=== PATIENT | female | born 1935 | race Caucasian/White ===

== ENCOUNTER 2020-04-22 21:21 | Inpatient (IN) | payer OTHER ==
[~2020-04-22] VITALS: Ht 162.6 cm; Wt 74.6 kg
--- NOTE | 2020-04-22 21:27 | NUR ---
PT BIB RA WITH A C/O GENERALIZED WEAKNESS. PT USUALLY AMBULATES WITH A WALKER AND TODAY IS NOT ABLE TO WITHOUT BEING UNSTEADY. PT HAS A HX OF COLON CA AND IS CURRENTLY GETTING TREATMENT FOR IT [facility] DR NORTH BAIRD, ONCOLOGIST. OFFICE: [phone]; CELL: [phone]
[2020-04-22] MEDS ORDERED: IV NS 0.9% 500 ML BAG IV ONE (21:30)
[2020-04-22 21:45] LABS: BASOPHILS % (AUTO) 0.4 % (0.0-2.0); EOSINOPHILS % (AUTO) 0.2 % (0.0-6.0); HEMATOCRIT 43 % (33-45); HEMOGLOBIN 14.6 g/dL (11.5-14.8); LYMPHOCYTES # (AUTO) 0.5 /CMM (0.8-4.8); LYMPHOCYTES % (AUTO) 5.7 % (20.0-44.0); MEAN CORPUSCULAR HGB CONC 34 g/dl (31.0-36.0); MEAN CORPUSCULAR VOLUME 87 fL (82-100); MONOCYTES # (AUTO) 0.6 /CMM (0.1-1.30); MONOCYTES % (AUTO) 7.8 % (2.0-12.0); NEUTROPHILS # (AUTO) 6.9 /CMM (1.8-8.9); NEUTROPHILS % (AUTO) 85.9 % (43.0-81.0); PLATELET COUNT (AUTO) 332 /CMM (150-450); RED BLOOD CELL COUNT(AUTO) 4.88 MIL/uL (4.0-5.2)
[2020-04-22 21:52] LABS: APPEARANCE,URINE Clear (CLEAR); BILIRUBIN,URINE Negative (NEGATIVE); BLOOD, URINE Negative Ery/uL (NEGATIVE); COLOR,URINE Yellow (YELLOW); KETONES,URINE Trace (NEGATIVE); LEUKOCYTE ESTERASE ,URINE Negative (NEGATIVE); NITRITE, URINE Negative (NEGATIVE); PH,URINE 5.5 (5.0-8.0); PROTEIN,URINE 30 mg/dl (NEGATIVE); UGLUCOSE Negative (NEGATIVE); UROBILINOGEN,URINE 0.2 EU/dL (0.2)
[2020-04-22 21:55] LABS: CALCIUM, SERUM 10.6 mg/dL (8.5-10.1); CARBON DIOXIDE 30 mmol/L (21-32); CHLORIDE 86 mmol/L (98-107); CREATININE 0.7 mg/dL (0.6-1.3); GLUCOSE 124 mg/dL (74-106); POTASSIUM 3.9 mmol/L (3.5-5.1); SODIUM SERUM 121 mmol/L (136-145); UREA NITROGEN, BLOOD 18 mg/dL (7-18)
[2020-04-22 22:00] LABS: ALANINE AMINOTRANSFERASE 22 U/L (12-78); ALBUMIN 2.8 g/dL (3.4-5.0); ALKALINE PHOSPHATASE 209 U/L (46-116); ASPARTATE AMINOTRANSFERASE 43 U/L (15-37); BILIRUBIN,DIRECT 0.2 mg/dL (0.0-0.2); BILIRUBIN,TOTAL 0.6 mg/dL (0.2-1.0)
[2020-04-22 22:01] LABS: ACETAMINOPHEN < 2 ug/ml (10-30); SALICYLATE < 2.8 mg/dL (2.8-20.0)
[2020-04-22 22:02] LABS: BACTERIA,URINE Many /HPF (None Seen); RBC,URINE 0-2 /HPF (0-2); SQUAMOUS EPITHELIAL CELL,UR Few /HPF (None Seen); WBC,URINE 0-2 /HPF (0-3)
--- NOTE | 2020-04-22 22:06 | NUR ---
PT IS IN CT.
[2020-04-22 22:07] LABS: SERUM AMMONIA 7 umol/L (11-32)
--- NOTE | 2020-04-22 22:11 | NUR ---
PT RETURNED FROM CT.
--- NOTE | 2020-04-22 22:17 | NUR ---
SR UP X 2 AND PADDED. SEIZURE PRECAUTIONS DUE TO SODIUM LEVEL IS LOW @ 121.
--- NOTE | 2020-04-22 22:17 | NUR ---
PT'S O2 SAT IS 94% ON RA. DR SHABAZZ WAS ASKED RE: O2 FOR PT. DR SHABAZZ WAS OK WITH PT'S SATURATION ON RA. NO NEW ORDERS GIVEN.
--- NOTE | 2020-04-22 22:17 | NUR ---
DR SHABAZZ IS AT THE BEDSIDE SPEAKING TO THE PT RE: POC.
[2020-04-22 22:19] LABS: THYROID STIMULATING HORMONE 3.294 uIU/mL (0.358-3.74)
--- NOTE | 2020-04-22 22:28 | NUR ---
DR SHABAZZ SPOKE TO PT'S ONCOLOGIST RE: ADMISSION
[2020-04-22] MEDS ORDERED: IV NS 0.9% 1,000 ML BAG IV ONE (22:30)
--- NOTE | 2020-04-22 22:31 | NUR ---
PT'S GOD DAUGHTER, PILAR, CALLED AND WANTED AN UPDATE ON THE PT. I WILL FACETIME PILAR IN A FEW MINUTES TO ALLOW HER TO SPEAK TO THE PT.
--- NOTE | 2020-04-22 22:33 | NUR ---
PT'S GOD DAUGHTER, PILAR CAN BE REACHED AT
--- NOTE | 2020-04-22 22:41 | NUR ---
PT OK'D THE FACETIME AND PILAR TO BE UPDATED WITH INFORMATION RE: ADMISSION.
--- NOTE | 2020-04-22 22:47 | NUR ---
CALLED [employer], NURSING TREATING ENGINEER, RE: TELE BED.
--- NOTE | 2020-04-22 22:53 | NUR ---
PT IS GOING TO 328-2
--- NOTE | 2020-04-22 23:08 | NUR ---
CALLING REPORT TO TELE NURSE.
--- NOTE | 2020-04-22 23:25 | NUR ---
DR MUÑOZ IS AT THE BEDSIDE SPEAKING TO THE PT.
[2020-04-22] MEDS ORDERED: MAG HYDROX/AL HYDROX/SIMETH 30 ML UDC PO PRN (23:30)
[2020-04-22] MEDS ORDERED: ACETAMINOPHEN 325 MG TABLET PO PRN (23:30)
[2020-04-22] MEDS ORDERED: HYDROCODONE/APAP 5/325MG 1 EACH TABLET PO PRN (23:30)
[2020-04-22] MEDS ORDERED: ZOLPIDEM TARTRATE 5 MG TABLET PO PRN (23:30)
[2020-04-22] MEDS ORDERED: Z GUARD REMEDY 2 OZ OINT TP PRN (23:30)
[2020-04-22] MEDS ORDERED: ONDANSETRON HCL/PF 4 MG/2 ML VIAL IVP PRN (23:30)
[2020-04-22] MEDS ORDERED: MAGNESIUM HYDROXIDE 30 ML UDC PO PRN (23:30)
[2020-04-22 23:47] LABS: CREATININE, URINE 108.4 MG/DL (30.0-125.0)
--- NOTE | 2020-04-22 23:50 | NUR ---
PT'S O2 SAT WENT FROM 89% TO 91% ON RA. PT WAS PLACED ON 2L O2 VIA NC. NOTIFIED.
[2020-04-22 23:55] VITALS: BP 163/112
--- NOTE | 2020-04-23 00:15 | NUR ---
TELE/RN NEW ADMIT OPENING NOTES PATIENT ARRIVED ON UNIT FROM ER VIA GURNEY AT [id number]. PATIENT IS ALERT AND ORIENTED X 3. PATIENT STATES NO PAIN AT THE MOMENT. PATIENT IS IN NO DISTRESS, NO SIGNS OF SOB, AND RESPIRATIONS ARE UNLABORED AND EVEN, PATIENT IS ON 2L OXYGEN VIA N/C SATURATING AT 97%. PATIENT IS ON TELE MONITOR READING ST 107. PATIENT HAS IV ACCESS ON RIGHT FORE ARM #20 G PATENT AND INTACT. PATIENTS SKIN IS INTACT. SAFETY MEASURES ARE IN PLACE, BED IS LOCKED AND IN THE LOW POSITION WITH SIDE RAILS UP X 2 AND PADDED FOR SEIZURE PRECAUTION. CALL LIGHT IS WITHIN REACH. WILL CONTINUE TO MONITOR DURING SHIFT.
[2020-04-23 00:42] VITALS: BP 163/112
[2020-04-23] MEDS: IV NS 0.9% 1,000 ML IV PRN ×2 (00:58→15:24)
[2020-04-23] MEDS: METOPROLOL TARTRATE 25 MG TABLET PO SCH ×3 (02:10→21:08)
--- NOTE | 2020-04-23 02:10 | NUR ---
TELE/RN NOTES PATIENT WAS GIVEN METOPROLOL 25 MG PO FOR BLOOD PRESSURE READING AT 163/112, HR 107. PATIENT HAS NO SIGNS OF DISTRESS NOTED. WILL CONTINUE TO MONITOR PATIENT.
[2020-04-23 03:43] LABS: BASOPHILS % (AUTO) 0.5 % (0.0-2.0); EOSINOPHILS % (AUTO) 0.4 % (0.0-6.0); HEMATOCRIT 41 % (33-45); HEMOGLOBIN 13.9 g/dL (11.5-14.8); LYMPHOCYTES # (AUTO) 0.4 /CMM (0.8-4.8); LYMPHOCYTES % (AUTO) 5.6 % (20.0-44.0); MEAN CORPUSCULAR HGB CONC 34 g/dl (31.0-36.0); MEAN CORPUSCULAR VOLUME 88 fL (82-100); MONOCYTES # (AUTO) 0.6 /CMM (0.1-1.30); MONOCYTES % (AUTO) 8.2 % (2.0-12.0); NEUTROPHILS % (AUTO) 85.3 % (43.0-81.0); PLATELET COUNT (AUTO) 263 /CMM (150-450); RED BLOOD CELL COUNT(AUTO) 4.68 MIL/uL (4.0-5.2)
[2020-04-23 04:00] VITALS: BP 174/96
[2020-04-23 04:07] LABS: IRON, SERUM 30 ug/dl (50-175); TOTAL IRON BINDING CAPACITY 212 ug/dl (250-450)
[2020-04-23 04:13] LABS: B-TYPE NATRIURETIC PEPTIDE 1041 PG/ML (0-125); CALCIUM, SERUM 9.6 mg/dL (8.5-10.1); CARBON DIOXIDE 29 mmol/L (21-32); CHLORIDE 89 mmol/L (98-107); CREATININE 0.5 mg/dL (0.6-1.3); GLUCOSE 112 mg/dL (74-106); PHOSPHORUS 2.8 mg/dL (2.5-4.9); POTASSIUM 3.5 mmol/L (3.5-5.1); SODIUM SERUM 124 mmol/L (136-145); UREA NITROGEN, BLOOD 13 mg/dL (7-18)
[2020-04-23 04:16] LABS: CHOLESTEROL 135 mg/dL (<200); HDL CHOLESTEROL 39 mg/dL (40-60); LDL 83 mg/dL (0-99); THYROID STIMULATING HORMONE 3.214 uIU/mL (0.358-3.74); TRIGLYCERIDES 89 mg/dL (30-150)
--- NOTE | 2020-04-23 06:29 | NUR ---
TELE/RN CLOSING NOTES PATIENT IS IN BED SLEEPING, ALERT AND ORIENTED X 3. PATIENT SHOWS NO SIGNS OF DISTRESS AT THE MOMENT. NO SIGNS OF SOB, AND RESPIRATIONS ARE UNLABORED AND EVEN, PATIENT IS ON 2L OXYGEN VIA N/C SATURATING AT 97%. PATIENT IS ON TELE MONITOR READING SR 81-82. PATIENT HAS IV ACCESS ON RIGHT FORE ARM #20 G PATENT AND INTACT RUNNING NS AT 75 ML/HR. SAFETY MEASURES ARE IN PLACE, BED IS LOCKED AND IN THE LOW POSITION WITH SIDE RAILS UP X 2 AND PADDED FOR SEIZURE PRECAUTION. CALL LIGHT IS WITHIN REACH. WILL ENDORSE CARE TO DAY SHIFT NURSE.
[2020-04-23] MEDS ORDERED: CAPE500T15 MT (06:43)
[2020-04-23] MEDS ORDERED: SIMV-46 MT (06:43)
[2020-04-23] MEDS ORDERED: AMLO5TAB9 MT (06:43)
[2020-04-23] MEDS ORDERED: NEBI10TA2 MT (06:43)
--- NOTE | 2020-04-23 07:55 | NUR ---
RN OPENING NOTE Patient is resting in bed, A/o x1-2, showing no signs of acute distress or SOB, breathing is even and unlabored saturating >95% on 2L NC. DC telemetry per MD. IV line is running NS @ 75mls/hr RFA #20g. Bed is in lowest position, side rails x3 in upright position, call light is within reach, fall safety and aspiration precautions enforced. Will continue with plan of care.
[2020-04-23 08:00] VITALS: BP 148/95
[2020-04-23] MEDS: ENOXAPARIN SODIUM 40 MG/0.4 ML DISP.SYRIN SQ SCH (09:18)
--- NOTE | 2020-04-23 10:37 | NUR ---
RN NOTE Dr. Ulloa at bedside, patient is lethargic, arousable to light pain, opens eyes, unable to tell us her name. Order from MD for CT scan without contrast. Notified MD for [employer] as well.
[2020-04-23 12:57] LABS: CALCIUM, SERUM 9.7 mg/dL (8.5-10.1); CARBON DIOXIDE 28 mmol/L (21-32); CHLORIDE 90 mmol/L (98-107); CREATININE 0.5 mg/dL (0.6-1.3); GLUCOSE 121 mg/dL (74-106); POTASSIUM 3.8 mmol/L (3.5-5.1); SODIUM SERUM 124 mmol/L (136-145); UREA NITROGEN, BLOOD 11 mg/dL (7-18)
--- NOTE | 2020-04-23 13:02 | NUR ---
RN NOTE Received telephone order from Dr. Quiñones to hold Capecitabine home medication for now. Orders repeated back and carried out.
[2020-04-23] MEDS: AMLODIPINE BESYLATE 5 MG TABLET PO SCH (13:55)
[2020-04-23] MEDS ORDERED: IOHEXOL-300 100 ML VIAL IV ONE (14:46)
[2020-04-23 14:48] LABS: ABG BASE EXCESS 2.8 mmol/L; ABG OXYGEN SATURATION 98.3 % (92.0-98.5); ABG PCO2 41.5 mmHg (35.0-45.0); ABG PH 7.436 (7.350-7.450); ABG PO2 106.9 mmHg (75.0-100.0); AaDO2 72.7 mmHg; COHb 0.7 % (0.5-1.5); O2Hb 97.6 % (94.0-97.0); SITE, ABG Right Radial; VENT MODE, BG 3L NC
[2020-04-23] MEDS ORDERED: IV NS 0.9% 250 ML IV ONE (14:50)
--- NOTE | 2020-04-23 15:17 | NUR ---
RN NOTE Patient is more alert, able to state name an answer questions. 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 She said "I am too old for all these tests. I don't want to do it today." Patient did not go down to CT. Will notify Dr. Quiñones. Addendum: 04/23/20 at 1541 by NADEGE PUGA RN Dr. Quiñones is aware and stated, "please make sure patient will do it tomorrow."
[2020-04-23 16:00] VITALS: BP 131/71
[2020-04-23] MEDS: SIMVASTATIN 20 MG TABLET PO SCH (18:00)
--- NOTE | 2020-04-23 18:29 | NUR ---
RN CLOSING NOTE Patient is resting in bed, A/o x1-2, showing no signs of acute distress or SOB, breathing is even and unlabored saturating >95% on 2L NC. IV line in LAC #20g is running NS @ 75mls/hr. All patient needs met, all due medications given, patient kept clean and dry throughout shift. Bed is in lowest position, side rails x3 in upright position, call light is within reach, fall safety and aspiration precautions enforced. Will endorse to security shift supervisor.
--- NOTE | 2020-04-23 19:10 | NUR ---
MS/RN OPENING NOTES: Patient is resting in bed, A/o x1-2, verbally responsive and able to make needs known. Showing no signs of acute distress or SOB, breathing is even and unlabored saturating >95% on 2L NC. IV line is running NS @ 75mls/hr Left AC #20g. Bed is in lowest position, side rails x3 in upright position, call light is within reach, fall safety and aspiration precautions enforced. Will continue with plan of care.
[2020-04-23 20:00] VITALS: BP 157/90
--- NOTE | 2020-04-24 02:22 | NUR ---
MS/RN NOTES: PT IS VERY CONFUSED. PULLED OUT HER IV. STARTED A NEW LINE ON THE LEFT UPPER ARM #20G. INTACT, PATENT, AND FLUSHING WELL. IVF INFUSING AT 75 MLS/HR. IV SITE WRAPPED IN KERLIX AND ARM SLEEVE.
[2020-04-24] MEDS: IV NS 0.9% 1,000 ML IV PRN ×2 (04:42→12:04)
[2020-04-24] MEDS: METOPROLOL TARTRATE 25 MG TABLET PO SCH ×3 (04:50→20:28)
--- NOTE | 2020-04-24 06:41 | NUR ---
MS/RN CLOSING NOTES: Patient remains resting in bed, A/o x1-2, verbally responsive and able to make needs known. has episodes of confusion, needs reorientation. Showing no signs of acute distress or SOB, breathing is even and unlabored saturating >95% on 2L NC. IV line is running NS @ 75mls/hr Left UA #20g. Bed is in lowest position, side rails x3 in upright position, call light is within reach, fall safety and aspiration precautions enforced. Pt is scheduled for CT WWO Contrast of Chest/Abd/Pelvis. Consent is in the chart. Kept patient NPO. Will endorse BEATRICE to day shift RN
--- NOTE | 2020-04-24 07:10 | NUR ---
MS RN OPENING NOTES RECEIVED PATIENT IN BED AWAKE AT THIS TIME, AO X 1-2, NO SOB NOTED, RESPIRATIONS ARE UNLABORED. NO C/O PAIN AT THIS TIME. NO S/S OF ANY ACUTE DISTRESS NOTED. IV ACCESS IN JAMES G#20, INTACT AND PATENT. SAFETY PRECAUTIONS IN PLACE, BED IN LOWEST LOCKED POSITION, SIDE RAILS UP X 2, HOB ELEVATED, CALL LIGHT WITHIN REACH. WILL CONTINUE TO MONITOR
[2020-04-24 07:31] LABS: BASOPHILS # (AUTO) 0.1 /CMM (0.0-0.2); BASOPHILS % (AUTO) 0.9 % (0.0-2.0); EOSINOPHILS % (AUTO) 0.6 % (0.0-6.0); HEMATOCRIT 45 % (33-45); HEMOGLOBIN 14.7 g/dL (11.5-14.8); LYMPHOCYTES # (AUTO) 0.4 /CMM (0.8-4.8); MEAN CORPUSCULAR HGB CONC 33 g/dl (31.0-36.0); MEAN CORPUSCULAR VOLUME 89 fL (82-100); MONOCYTES # (AUTO) 0.5 /CMM (0.1-1.30); MONOCYTES % (AUTO) 6.6 % (2.0-12.0); NEUTROPHILS # (AUTO) 6.6 /CMM (1.8-8.9); NEUTROPHILS % (AUTO) 86.9 % (43.0-81.0); PLATELET COUNT (AUTO) 263 /CMM (150-450); RED BLOOD CELL COUNT(AUTO) 4.99 MIL/uL (4.0-5.2); WHITE BLOOD COUNT (AUTO) 7.6 K/uL (4.3-11.0)
[2020-04-24 07:56] LABS: ALANINE AMINOTRANSFERASE 26 U/L (12-78); ALBUMIN 2.4 g/dL (3.4-5.0); ALKALINE PHOSPHATASE 234 U/L (46-116); ASPARTATE AMINOTRANSFERASE 50 U/L (15-37); BILIRUBIN,TOTAL 0.6 mg/dL (0.2-1.0); CALCIUM, SERUM 9.5 mg/dL (8.5-10.1); CARBON DIOXIDE 27 mmol/L (21-32); CHLORIDE 92 mmol/L (98-107); CREATININE 0.4 mg/dL (0.6-1.3); GLUCOSE 101 mg/dL (74-106); PHOSPHORUS 2.2 mg/dL (2.5-4.9); POTASSIUM 3.5 mmol/L (3.5-5.1); SODIUM SERUM 126 mmol/L (136-145); TOTAL PROTEIN, SERUM 6.2 g/dL (6.4-8.2); UREA NITROGEN, BLOOD 8 mg/dL (7-18)
[2020-04-24 08:00] VITALS: BP 144/89
[2020-04-24 08:07] LABS: FERRITIN 293 ng/mL (8-388); THYROID STIMULATING HORMONE 2.302 uIU/mL (0.358-3.74); URIC ACID 3.1 mg/dL (2.6-7.2)
[2020-04-24] MEDS ORDERED: IV NS 0.9% 250 ML IV ONE (08:07)
[2020-04-24] MEDS ORDERED: IOHEXOL-300 100 ML VIAL IV ONE (08:07)
[2020-04-24] MEDS ORDERED: CT SWABBABLE VALVE TRANS SET 1 EA INFUS.SET MC ONE (08:07)
--- NOTE | 2020-04-24 08:30 | NUR ---
PT OUT OF ROOM AT THIS TIME FOR A PROCEDURE - CT CHEST, ABDOMEN AND PELVIS WITH/WITHOUT CONTRAST. PATIENT TRANSPORTED BY BED. WILL CONTINUE TO MONITOR
--- NOTE | 2020-04-24 08:40 | NUR ---
PT TRANSPORTED BACK TO ROOM/UNIT BY BED FROM - CT CHEST, ABDOMEN AND PELVIS WITH/WITHOUT CONTRAST PROCEDURE. VITAL SIGNS STABLE, WILL CONTINUE TO MONITOR
[2020-04-24] MEDS: ENOXAPARIN SODIUM 40 MG/0.4 ML DISP.SYRIN SQ SCH (08:50)
[2020-04-24] MEDS: AMLODIPINE BESYLATE 5 MG TABLET PO SCH (08:50)
--- NOTE | 2020-04-24 09:47 | NUR ---
RECEIVED REPORT FROM AALIYAH, MANAGER STERILE, ABOUT PATIENT'S CT CHEST, ABDOMEN AND PELVIS W/WO CONTRAST. DOCTOR ALEK MADE AWARE. WILL CONTINUE TO MONITOR
[2020-04-24] MEDS ORDERED: K PHOS NEUTRAL 250 MG TABLET PO ONE (12:00)
[2020-04-24 16:00] VITALS: BP 146/77
[2020-04-24] MEDS: SIMVASTATIN 20 MG TABLET PO SCH (17:37)
--- NOTE | 2020-04-24 19:05 | NUR ---
MS RN CLOSING NOTES PT IN BED AWAKE AT THIS TIME. PT REMAINED STABLE THROUGHOUT SHIFT. PT KEPT CLEAN AND DRY. ALL NEEDS, CARE, TREATMENT AND MEDICATIONS ADMINISTERED ANTICIPATED PER ORDER. URINE COLLECTED FOR URINE CULTURE. ASPIRATION AND SAFETY PRECAUTIONS IN PLACE, BED IN LOWEST LOCKED POSITION, SIDE RAILS UP X 2, HOB ELEVATED, CALL LIGHT WITHIN REACH. WILL ENDORSE TO HEADEND TECHNICIAN NURSE FOR BEATRICE
--- NOTE | 2020-04-24 19:30 | NUR ---
MS RN OPEN NOTES PATIENT IS LAYING IN BED. NO SOB/ ACUTE RESPIRATORY DISTRESS NOTED. APPEARS COMFORTABLE/ NO COMPLAINTS OF PAIN AT THE MOMENT. BED IS IN LOWEST LOCKED POSITION WITH SIDE RAILS UP, SEMI FOWLERS. CALL LIGHT IS WITHIN REACH. WILL CONTINUE TO MONITOR.
[2020-04-24 20:00] VITALS: BP 151/96
[2020-04-24 20:11] LABS: OSMOLALITY,URINE 495 mOS/kg (340-1090)
[2020-04-24 20:13] LABS: URINE SODIUM, RANDOM 20 mmol/l (40-220)
[2020-04-25] MEDS: IV NS 0.9% 1,000 ML IV PRN ×2 (02:28→12:55)
[2020-04-25] MEDS: METOPROLOL TARTRATE 25 MG TABLET PO SCH ×3 (04:08→21:28)
--- NOTE | 2020-04-25 05:50 | NUR ---
MS BLAS NOTES CONTACTED NEPHEW, SUZANNE PRUITT REGARDING PT'S PROCEDURE. PT'S NEPHEW STATED THAT HE LIVES WITH [place]. HE WAS ALSO ABLE TO CONTACT PT'S SON REGARDING HER THORACENTESIS. THEY BOTH GAVE CONSENT FOR THE PROCEDURE TO BE DONE THIS MORNING. BLAS GARCIA WAS WITNESS TO THE TELEPHONE CONSENT. WITNESSED CONSENT SIGNED BY MYSELF AND JOSE.
--- NOTE | 2020-04-25 06:30 | NUR ---
MS RN CLOSE NOTES PATIENT IS LAYING IN BED. A/O X2 WITH PERIODS OF CONFUSION. ON 4L NASAL CANULA, NO SOB/ ACUTE RESPIRATORY DISTRESS NOTED. APPEARS COMFORTABLE/ NO COMPLAINTS OF PAIN AT THE MOMENT. IV IN L UPPERARM #20G IS PATENT AND INTACT RUNNING NS @ 100MLS/HR. PT KEPT NPO FOR SCHEDULED THORACENTESIS. BED IS IN LOWEST LOCKED POSITION WITH SIDE RAILS UP, SEMI FOWLERS. CALL LIGHT IS WITHIN REACH. WILL ENDORSE TO AM NURSE.
[2020-04-25 07:10] LABS: BASOPHILS # (AUTO) 0.1 /CMM (0.0-0.2); BASOPHILS % (AUTO) 0.9 % (0.0-2.0); EOSINOPHILS % (AUTO) 0.5 % (0.0-6.0); HEMATOCRIT 43 % (33-45); HEMOGLOBIN 14.3 g/dL (11.5-14.8); LYMPHOCYTES # (AUTO) 0.4 /CMM (0.8-4.8); LYMPHOCYTES % (AUTO) 5.1 % (20.0-44.0); MEAN CORPUSCULAR HGB CONC 34 g/dl (31.0-36.0); MEAN CORPUSCULAR VOLUME 88 fL (82-100); MONOCYTES # (AUTO) 0.4 /CMM (0.1-1.30); MONOCYTES % (AUTO) 4.8 % (2.0-12.0); NEUTROPHILS % (AUTO) 88.7 % (43.0-81.0); PLATELET COUNT (AUTO) 324 /CMM (150-450); RED BLOOD CELL COUNT(AUTO) 4.84 MIL/uL (4.0-5.2); WHITE BLOOD COUNT (AUTO) 7.9 K/uL (4.3-11.0)
[2020-04-25 07:23] LABS: CALCIUM, SERUM 8.9 mg/dL (8.5-10.1); CARBON DIOXIDE 26 mmol/L (21-32); CHLORIDE 96 mmol/L (98-107); CREATININE 0.4 mg/dL (0.6-1.3); GLUCOSE 99 mg/dL (74-106); MAGNESIUM 1.9 mg/dL (1.8-2.4); PHOSPHORUS 2.5 mg/dL (2.5-4.9); POTASSIUM 3.4 mmol/L (3.5-5.1); SODIUM SERUM 130 mmol/L (136-145); UREA NITROGEN, BLOOD 8 mg/dL (7-18)
--- NOTE | 2020-04-25 07:30 | NUR ---
MS/RN NOTES KEPT NPO FOR SCHEDULED PROCEDURE
--- NOTE | 2020-04-25 07:30 | NUR ---
MS/RN OPENING NOTES Patient resting in bed, A&O x 2. Denies any pain/discomfort at the moment. Breathing even and non-labored on 4L oxygen via NC, no SOB noted. No cardiac distress noted. Sensation from all peripheral extremities noted. IV access noted on the JAMES #20, patent and intact, infusing NS @ 100 mls/hr. Fall precautions maintained. Consent ready for thoracentesis today. Held lovenox. Will continue with current medical management.
[2020-04-25 08:00] VITALS: BP 148/77
[2020-04-25] MEDS: AMLODIPINE BESYLATE 5 MG TABLET PO SCH (09:17)
[2020-04-25] MEDS: FOLIC ACID 1 MG TABLET PO SCH (09:18)
--- NOTE | 2020-04-25 09:30 | NUR ---
MS/RN NOTES Thoracentesis done on the right lung, 800 cc of fluid removed. Sent fluid to lab. Will continue to monitor patient.
[2020-04-25] MEDS ORDERED: POTASSIUM CHLORIDE 20 MEQ TAB.PRT.SR PO SCH (10:00)
--- NOTE | 2020-04-25 10:00 | NUR ---
MS/RN NOTES Patient remains stable, VSS, afebrile, no SOB noted. Will continue to monitor for any changes of condition.
--- NOTE | 2020-04-25 12:00 | NUR ---
MS/RN NOTES Dr. Ulloa at bedside, notified about sodium level at 130, was told to just monitor sodium levels since it increased from 126 yesterday. No new orders at this time.
[2020-04-25 16:00] VITALS: BP 151/77
[2020-04-25] MEDS: SIMVASTATIN 20 MG TABLET PO SCH (17:13)
--- NOTE | 2020-04-25 19:00 | NUR ---
MS/RN CLOSING NOTES Patient resting in bed, A&O x 2. Breathing even and non-labored on 2L oxygen via NC. No respiratory or cardiac distress noted. No complaints of pain or discomfort at the moment. Sensation from all peripheral extremities noted. IV access noted on the JAMES #20, patent and intact, infusing NS @ 100 mls/hr. Fall precautions maintained. Will notify night supervisor nurse. Addendum: 04/25/20 at 1927 by CARTER BROOKE RN In addition to above, Co-vid test needs to be collected for possible SNF placement, as per Isha.
[2020-04-25 19:30] VITALS: BP 149/87
--- NOTE | 2020-04-25 19:35 | NUR ---
MS RN NOTES PATIENT IN BED, AWAKE, ALERT AND ORIENTED X 1-2. WITH PERIODS ON CONFUSION. BREATHING EVEN AND UNLABORED ON 2L NC. SHOWS NO SIGNS OF ACUTE RESPIRATORY DISTRESS, NO ACUTE PAIN. IV ON JAMES 20G RUNNING NS AT 100ML/HR. SHOWS NO SIGNS OF INFILTRATION, NO REDNESS. SAFETY PRECAUTIONS IN PLACE. BED IN LOWEST POSITION, LOCKED, AND CALL LIGHT KEPT WITHIN REACH. WILL CONTINUE TO MONITOR.
[2020-04-25 20:00] VITALS: BP 149/87
[2020-04-26] MEDS: IV NS 0.9% 1,000 ML IV PRN ×3 (01:00→22:18)
[2020-04-26] MEDS: METOPROLOL TARTRATE 25 MG TABLET PO SCH ×3 (05:22→22:08)
--- NOTE | 2020-04-26 06:33 | NUR ---
MS RN NOTES PATIENT IN BED, ASLEEP, ALERT AND ORIENTED X 1-2. WITH PERIODS ON CONFUSION. BREATHING EVEN AND UNLABORED ON 2L NC. SHOWS NO SIGNS OF ACUTE RESPIRATORY DISTRESS, NO ACUTE PAIN. IV ON JAMES 20G RUNNING NS AT 100ML/HR. SHOWS NO SIGNS OF INFILTRATION, NO REDNESS. ALL DUE MEDICATIONS GIVEN. SAFETY PRECAUTIONS IN PLACE. BED IN LOWEST POSITION, LOCKED, AND CALL LIGHT KEPT WITHIN REACH. WILL ENDORSE TO ONCOMING NURSE.
--- NOTE | 2020-04-26 06:41 | NUR ---
MS RN NOTES CALLED SON YUN GRAHAM [phone] AND ANOTHER NUMBER [phone], NO ANSWER. UNABLE TO GET CONSENT FOR PICC LINE. WILL ENDORSE TO ONCOMING NURSE.
--- NOTE | 2020-04-26 07:37 | NUR ---
MS/RN OPENING NOTES RECEIVED PATIENT IN BED, AWAKE, ALERT AND ORIENTED X 1-2. BREATHING EVEN AND UNLABORED ON 2L NC. SHOWS NO SIGNS OF ACUTE RESPIRATORY DISTRESS, NO SIGN AND SYMPTOM ACUTE PAIN NOTED. IV ON JAMES 20G RUNNING NS AT 100ML/HR. SHOWS NO SIGNS OF INFILTRATION, NO REDNESS. SAFETY PRECAUTIONS IN PLACE. BED IN LOWEST POSITION, LOCKED, AND CALL LIGHT KEPT WITHIN REACH. WILL CONTINUE TO MONITOR.
[2020-04-26 08:00] VITALS: BP 157/87
[2020-04-26] MEDS: FOLIC ACID 1 MG TABLET PO SCH (08:14)
[2020-04-26] MEDS: AMLODIPINE BESYLATE 5 MG TABLET PO SCH (08:14)
[2020-04-26 08:27] LABS: BASOPHILS % (AUTO) 0.4 % (0.0-2.0); EOSINOPHILS % (AUTO) 0.2 % (0.0-6.0); HEMATOCRIT 46 % (33-45); HEMOGLOBIN 15.3 g/dL (11.5-14.8); LYMPHOCYTES # (AUTO) 0.4 /CMM (0.8-4.8); LYMPHOCYTES % (AUTO) 3.8 % (20.0-44.0); MEAN CORPUSCULAR HGB CONC 33 g/dl (31.0-36.0); MEAN CORPUSCULAR VOLUME 89 fL (82-100); MONOCYTES # (AUTO) 0.5 /CMM (0.1-1.30); MONOCYTES % (AUTO) 4.6 % (2.0-12.0); NEUTROPHILS # (AUTO) 9.9 /CMM (1.8-8.9); PLATELET COUNT (AUTO) 357 /CMM (150-450); RED BLOOD CELL COUNT(AUTO) 5.19 MIL/uL (4.0-5.2); WHITE BLOOD COUNT (AUTO) 10.9 K/uL (4.3-11.0)
[2020-04-26 08:39] LABS: CALCIUM, SERUM 9.6 mg/dL (8.5-10.1); CARBON DIOXIDE 22 mmol/L (21-32); CHLORIDE 99 mmol/L (98-107); CREATININE 0.5 mg/dL (0.6-1.3); GLUCOSE 101 mg/dL (74-106); MAGNESIUM 2.2 mg/dL (1.8-2.4); PHOSPHORUS 2.1 mg/dL (2.5-4.9); POTASSIUM 3.6 mmol/L (3.5-5.1); SODIUM SERUM 133 mmol/L (136-145); UREA NITROGEN, BLOOD 9 mg/dL (7-18)
[2020-04-26] MEDS ORDERED: NEUTRA PHOS 1 POWD.PACKET PO ONE (12:00)
--- NOTE | 2020-04-26 12:01 | NUR ---
MS/RN NOTES PICC LINE CONSENT WAS ATTACH IN THE CHART AND TELEPHONE CONSENT SIGN BY YUN GRAHAM. WITNESS BY 2 RN.
[2020-04-26 16:00] VITALS: BP 143/89
[2020-04-26] MEDS: SIMVASTATIN 20 MG TABLET PO SCH (18:00)
--- NOTE | 2020-04-26 19:30 | NUR ---
MS/RN OPENING NOTE PATIENT IS IN BED, AWAKE, ALERT AND ORIENTED X 1. BREATHING EVEN AND UNLABORED ON RA. NO SIGNS OF ACUTE RESPIRATORY DISTRESS BREATHING EVEN AND UNLABORED. NO SIGN AND SYMPTOM PAIN NOTED. IV ON JAMES 22G RUNNING NS AT 100ML/HR. SOFT TO TOUCH. NO SIGNS OF INFILTRATION, NO REDNESS. SAFETY PRECAUTIONS IN PLACE. BED IN LOWEST LOCKED POSITION, CALL LIGHT WITHIN REACH. WILL CONTINUE TO MONITOR.
--- NOTE | 2020-04-26 19:48 | NUR ---
MS/RN CLOSING NOTES PATIENT IS IN BED, AWAKE, ALERT AND ORIENTED X 1-2. BREATHING EVEN AND UNLABORED ON 2L NC. NO SIGNS OF ACUTE RESPIRATORY DISTRESS. NO SIGN AND SYMPTOM ACUTE PAIN NOTED. IV ON JAMES 22G RUNNING NS AT 100ML/HR. NO SIGNS OF INFILTRATION, NO REDNESS. SEEN AND EXAMINED BY MD WITH ORDERS MADE AND CARRIED OUT. ALL DUE MEDICATIONS WAS GIVEN. CHECKED PATIENT EVERY 2 HOURS. SAFETY PRECAUTIONS IN PLACE. BED IN LOWEST POSITION, LOCKED, AND CALL LIGHT KEPT WITHIN REACH. WILL ENDORSED TO PROP WORKER FOR BEATRICE.
[2020-04-26 20:00] VITALS: BP 139/93
[2020-04-27] MEDS: METOPROLOL TARTRATE 25 MG TABLET PO SCH ×3 (04:37→21:32)
--- NOTE | 2020-04-27 05:19 | NUR ---
patient has not urinated during shift. bladder scan revealed urine greater then 600 ml contacted practitioner yennifer porter new order for indwelling warren recieved.
--- NOTE | 2020-04-27 06:10 | NUR ---
MCCOY CATHETER INSERTED WITH DEWEY ODONNELL. PATIENT TOLERATED PROCEDURE WELL. PATIENT PRODUCED BETY URNINE IN THE AMOUNT OF 600 ML.
--- NOTE | 2020-04-27 06:34 | NUR ---
MS/RN CLOSING NOTE PATIENT IS IN BED, AWAKE, ALERT AND ORIENTED X 1. BREATHING EVEN AND UNLABORED ON RA. NO SIGNS OF ACUTE RESPIRATORY DISTRESS BREATHING EVEN AND UNLABORED. NO SIGN AND SYMPTOM PAIN NOTED. IV ON JAMES 22G RUNNING NS AT 100ML/HR. SOFT TO TOUCH. NO SIGNS OF INFILTRATION, NO REDNESS. PATIENT HAD URINE RETENTION LAST NIGTH NOW HAS FC 16 NAURUAN DRAINING BETY COLOR URINE. SAFETY PRECAUTIONS IN PLACE. BED ALARM ACTIVE. PT HAD ONE BM LAST NIGHT. BED IN LOWEST LOCKED POSITION, CALL LIGHT WITHIN REACH.
--- NOTE | 2020-04-27 07:30 | NUR ---
MS RN OPENING NOTE RECEIVED PATIENT IN BED, AWAKE, ALERT AND ORIENTED X 1. NO CARDIAC OR RESPIRATORY DISTRESS NOTED. NO SOB NOTED. SATURATING WELL ON ROOM AIR. BREATHING EVEN AND UNLABORED. NO COMPLAINTS OF PAIN OR DISCOMFORT. IV ACCESS NOTED ON L UPPER ARM G22. INTACT AND PATENT AND FLUSHING WELL. IV FLUIDS RUNNING WITH NS AT 100ML/HR. MCCOY CATH IN PLACE AND PRESENT. INTACT AND PATENT AND DRAINING WITH CLEAR YELLOW URINE. SAFETY PRECAUTIONS IN PLACE. BED LOCKED AND IN LOW POSITION. SIDE RAILS UP X2. BED ALARM ON. CALL LIGHT WITHIN REACH. WILL CONT TO MONITOR.
[2020-04-27 07:45] LABS: BASOPHILS % (AUTO) 0.2 % (0.0-2.0); EOSINOPHILS % (AUTO) 0.1 % (0.0-6.0); HEMATOCRIT 49 % (33-45); HEMOGLOBIN 15.8 g/dL (11.5-14.8); LYMPHOCYTES # (AUTO) 0.6 /CMM (0.8-4.8); LYMPHOCYTES % (AUTO) 4.9 % (20.0-44.0); MEAN CORPUSCULAR HGB CONC 32 g/dl (31.0-36.0); MEAN CORPUSCULAR VOLUME 90 fL (82-100); MONOCYTES # (AUTO) 0.6 /CMM (0.1-1.30); NEUTROPHILS # (AUTO) 10.8 /CMM (1.8-8.9); NEUTROPHILS % (AUTO) 89.8 % (43.0-81.0); PLATELET COUNT (AUTO) 336 /CMM (150-450); RED BLOOD CELL COUNT(AUTO) 5.44 MIL/uL (4.0-5.2)
[2020-04-27 08:00] VITALS: BP 160/98
[2020-04-27 08:11] LABS: CALCIUM, SERUM 9.8 mg/dL (8.5-10.1); CARBON DIOXIDE 19 mmol/L (21-32); CHLORIDE 99 mmol/L (98-107); CREATININE 0.5 mg/dL (0.6-1.3); GLUCOSE 116 mg/dL (74-106); POTASSIUM 3.8 mmol/L (3.5-5.1); SODIUM SERUM 132 mmol/L (136-145); UREA NITROGEN, BLOOD 9 mg/dL (7-18)
[2020-04-27] MEDS: FOLIC ACID 1 MG TABLET PO SCH (08:35)
[2020-04-27] MEDS: AMLODIPINE BESYLATE 5 MG TABLET PO SCH (08:35)
[2020-04-27] MEDS: IV NS 0.9% 1,000 ML IV PRN ×2 (10:49→21:23)
[2020-04-27] MEDS ORDERED: NEUTRA PHOS 1 POWD.PACKET PO ONE (12:00)
[2020-04-27] MEDS ORDERED: NITROFURANTOIN/NITROFURAN MAC 100 MG CAPSULE PO SCH (14:00)
[2020-04-27 16:00] VITALS: BP 146/91
[2020-04-27] MEDS: SIMVASTATIN 20 MG TABLET PO SCH (17:12)
--- NOTE | 2020-04-27 18:15 | NUR ---
PICC LINE PICC LINE INSERTED ON L UPPER ARM. DOUBLE LUMEN. INTACT AND PATENT AND FLUSHING WELL. READY TO USE PER PICC LINE NURSE
--- NOTE | 2020-04-27 18:31 | NUR ---
MS RN CLOSING NOTES PATIENT IN BED, AWAKE, ALERT AND ORIENTED X 1. NO CARDIAC OR RESPIRATORY DISTRESS NOTED. NO SOB NOTED. SATURATING WELL ON ROOM AIR. BREATHING EVEN AND UNLABORED. NO COMPLAINTS OF PAIN OR DISCOMFORT. IV ACCESS NOTED ON L UPPER ARM G22. WELL PICC LINE THAT WAS PLACED TODAY ON L UPPER ARM. ALL IV ACCESS INTACT AND PATENT AND FLUSHING WELL. IV FLUIDS RUNNING WITH NS AT 100ML/HR. MCCOY CATH IN PLACE AND PRESENT. INTACT AND PATENT AND DRAINING WITH CLEAR YELLOW URINE. SAFETY PRECAUTIONS IN PLACE. BED LOCKED AND IN LOW POSITION. SIDE RAILS UP X2. BED ALARM ON. CALL LIGHT WITHIN REACH. WILL ENDORSE TO NEXT SHIFT.
--- NOTE | 2020-04-27 19:05 | NUR ---
MS RN NOTES RECEIVED PT IN BED AWAKE AND ABLE TO MAKE NEEDS KNOWN. PT A/O X1-2 WITH PERIODS OF CONFUSION. RESPIRATIONS EVEN AND UNLABORED WITH NO S/S OF ACUTE DISTRESS OR SOB NOTED. NO COMPLAINT SOF PAIN AT THIS TIME. PT NOTED WITH LAC #22G INFUSING NS @100CC/HR AND JAMES PICC LINE. PT NOTED WITH MCCOY CATH IN PLACE AND PRESENT AND DRAINING WELL. SAFETY MEASURES IN PLACE WITH BED IN LOWEST LOCKED POSITION WITH SIDE RAILS UP X2. CALL LIGHT WITHIN REACH. WILL CONTINUE TO MONITOR.
[2020-04-27] MEDS ORDERED: CEFTRIAXONE 1GM BAG (ER ONLY) 1 GM/50 ML PIGGYBACK IV SCH (19:30)
[2020-04-27 20:00] VITALS: BP 115/77
[2020-04-27 21:11] LABS: APPEARANCE,URINE CLEAR (CLEAR); BILIRUBIN,URINE SMALL (NEGATIVE); BLOOD, URINE LARGE Ery/uL (NEGATIVE); COLOR,URINE YELLOW (YELLOW); KETONES,URINE 15 (NEGATIVE); LEUKOCYTE ESTERASE ,URINE TRACE (NEGATIVE); NITRITE, URINE POSITIVE (NEGATIVE); PH,URINE 5.5 (5.0-8.0); PROTEIN,URINE 100 mg/dl (NEGATIVE); UGLUCOSE NEGATIVE (NEGATIVE); UROBILINOGEN,URINE >=8.0 EU/dL (0.2)
[2020-04-27] MEDS ORDERED: CEFTRIAXONE 1 G VIAL ONE (21:12)
[2020-04-27] MEDS: CEFTRIAXONE 1 G in IV D5W 50 ML IV SCH (21:16)
[2020-04-27 21:52] LABS: RBC,URINE 21-50 /HPF (0-2)
[2020-04-27 21:53] LABS: BACTERIA,URINE 4+ /HPF (None Seen); SQUAMOUS EPITHELIAL CELL,UR 0-2 /HPF (None Seen); URINE AMORPHOUS URATE Moderate /HPF (None Seen)
[2020-04-28] MEDS: METOPROLOL TARTRATE 25 MG TABLET PO SCH ×3 (05:19→21:00)
--- NOTE | 2020-04-28 07:02 | NUR ---
MS RN NOTES PT IN BED AWAKE AND ABLE TO MAKE NEEDS KNOWN. PT A/O X1-2 WITH PERIODS OF CONFUSION. RESPIRATIONS EVEN AND UNLABORED WITH NO S/S OF ACUTE DISTRESS OR SOB NOTED THROUGHOUT SHIFT. PT KEPT CLEAN, DRY, AND COMFORTABLE. NO COMPLAINT SOF PAIN AT THIS TIME. PT NOTED WITH LAC #22G INFUSING NS @100CC/HR AND JAMES PICC LINE. PT NOTED WITH MCCOY CATH IN PLACE AND PRESENT AND DRAINING WELL. SAFETY MEASURES IN PLACE WITH BED IN LOWEST LOCKED POSITION WITH SIDE RAILS UP X2. CALL LIGHT WITHIN REACH. WILL ENDORSE TO ONCOMING NURSE FOR BEATRICE.
[2020-04-28 07:21] LABS: CALCIUM, SERUM 10.3 mg/dL (8.5-10.1); CARBON DIOXIDE 19 mmol/L (21-32); CHLORIDE 102 mmol/L (98-107); CREATININE 0.4 mg/dL (0.6-1.3); GLUCOSE 103 mg/dL (74-106); PHOSPHORUS 2.1 mg/dL (2.5-4.9); POTASSIUM 3.5 mmol/L (3.5-5.1); SODIUM SERUM 134 mmol/L (136-145); UREA NITROGEN, BLOOD 8 mg/dL (7-18)
[2020-04-28 07:23] LABS: BASOPHILS % (AUTO) 0.2 % (0.0-2.0); EOSINOPHILS % (AUTO) 0.1 % (0.0-6.0); HEMATOCRIT 49 % (33-45); HEMOGLOBIN 15.5 g/dL (11.5-14.8); LYMPHOCYTES # (AUTO) 0.6 /CMM (0.8-4.8); LYMPHOCYTES % (AUTO) 4.6 % (20.0-44.0); MEAN CORPUSCULAR HGB CONC 31 g/dl (31.0-36.0); MEAN CORPUSCULAR VOLUME 94 fL (82-100); MONOCYTES # (AUTO) 0.7 /CMM (0.1-1.30); NEUTROPHILS % (AUTO) 89.1 % (43.0-81.0); PLATELET COUNT (AUTO) 352 /CMM (150-450); RED BLOOD CELL COUNT(AUTO) 5.27 MIL/uL (4.0-5.2); WHITE BLOOD COUNT (AUTO) 12.4 K/uL (4.3-11.0)
--- NOTE | 2020-04-28 07:45 | NUR ---
MS RN NOTES RECEIVED PT IN BED, ASLEEP, EASILY AROUSED, A/O X1-2. PT TOLERATING RA, WITH NO ACUTE RESPIRATORY DISTRESS NOTED. PT DENIES ANY PAIN OR DISCOMFORT AT THIS TIME. JAMES PICC LINE AND PIV LAC, FLUSHED WITH NS, INTATC AND OPERATIONAL. FC IN PLACE WITH CLEAR YELLOW URINE. PT KEPT COMFORTABLE. CALL LIGHT KEPT WITHIN REACH. PT'S BED IN LOWEST, LOCKED POSITION WITH SRX3. WILL CONTINUE PLAN OF CARE.
[2020-04-28 08:00] VITALS: BP 150/91
[2020-04-28] MEDS: AMLODIPINE BESYLATE 5 MG TABLET PO SCH (10:08)
[2020-04-28] MEDS: FOLIC ACID 1 MG TABLET PO SCH (10:08)
[2020-04-28] MEDS ORDERED: NEUTRA PHOS 1 POWD.PACKET PO ONE (11:00)
[2020-04-28 16:00] VITALS: BP 147/88
[2020-04-28] MEDS: SIMVASTATIN 20 MG TABLET PO SCH (17:43)
--- NOTE | 2020-04-28 17:52 | NUR ---
MS RN NOTES SPOKE TO FAMILY/SUZANNE VIA PHONE. INFORMED REGARDING POOR APPETITE AND WEAKNESS OF THE PATIENT. PER FAMILY/SUZANNE PT'S BEHAVIOR IS THE SAME AT HOME. WILL CONTINUE TO ENCOURAGE PT AND WILL ENDORSE TO INCOMING NURSE FOR BEATRICE.
[2020-04-28] MEDS: IV NS 0.9% 1,000 ML IV PRN (18:07)
--- NOTE | 2020-04-28 18:56 | NUR ---
MS RN NOTES PT IN BED, ASLEEP, EASILY AROUSED, A/O X1-2. PT TOLERATING RA, WITH NO ACUTE RESPIRATORY DISTRESS NOTED. PT DENIES ANY PAIN OR DISCOMFORT AT THIS TIME. JAMES PICC LINE AND PIV LAC, FLUSHED WITH NS, INTATC AND OPERATIONAL. FC IN PLACE WITH CLEAR YELLOW URINE. PT KEPT COMFORTABLE. ALL NEEDS AND CARE ATTENDED. CALL LIGHT KEPT WITHIN REACH. PT'S BED IN LOWEST, LOCKED POSITION WITH SRX3. WILL ENDORSE TO INCOMING NIGHT NURSE FOR BEATRICE.
--- NOTE | 2020-04-28 19:32 | NUR ---
MS RN OPENING NOTES PATIENT RECEIVED RESTING IN BED A/O X 2. ON 2L OF O2 WITH BREATHING EVEN AND UNLABORED, NO SOB NOTED. NO SIGNS OF ACUTE DISTRESS. NO COMPLAINTS OR PAIN OR DISCOMFORT- NO FACIAL GRIMACING NOTED. MCCOY CATH NOTED AND IN PLACE. JAMES PICC LINE NOTED AND IV LOCATED ON LAC RUNNING NS @ 100 ML/HR. SAFETY PRECAUTIONS IN PLACE WITH BED IN LOWEST POSITION, CALL LIGHT WITHIN REACH, BREAKS ON, SIDE RAILS UP. WILL CONTINUE TO MONITOR THROUGHOUT THE SHIFT.
--- NOTE | 2020-04-28 19:48 | NUR ---
MS RN NOTES RECEIVED CALL FROM MD BAIRD FOR PATIENT UPDATES. ORDERED ENSURE TID. ORDER RECEIVED AND CARRIED OUT.
[2020-04-28 20:00] VITALS: BP 145/91
[2020-04-28] MEDS: CEFTRIAXONE 1 G in IV D5W 50 ML IV SCH (21:01)
[2020-04-29] MEDS: METOPROLOL TARTRATE 25 MG TABLET PO SCH ×3 (04:03→21:38)
[2020-04-29] MEDS: IV NS 0.9% 1,000 ML IV PRN ×2 (04:38→15:23)
--- NOTE | 2020-04-29 06:48 | NUR ---
MS RN CLOSINGNOTES PATIENT RESTING IN BED A/O X 2. ON 2L OF O2 WITH BREATHING EVEN AND UNLABORED, NO SOB NOTED. NO SIGNS OF ACUTE DISTRESS. NO COMPLAINTS OR PAIN OR DISCOMFORT- NO FACIAL GRIMACING NOTED. MCCOY CATH NOTED AND IN PLACE WITH BETY CLEAR DRAINAGE. JAMES PICC LINE NOTED AND IV LOCATED ON LAC RUNNING NS @ 100 ML/HR. SAFETY PRECAUTIONS IN PLACE WITH BED IN LOWEST POSITION, CALL LIGHT WITHIN REACH, BREAKS ON, SIDE RAILS UP. ALL NEEDS ATTENDED TO. PATIENT KEPT CLEAN AND DRY. WILL ENDORSE TO ONCOMING SHIFT ABOUT BEATRICE.
[2020-04-29 06:53] LABS: BASOPHILS % (AUTO) 0.2 % (0.0-2.0); EOSINOPHILS % (AUTO) 0.2 % (0.0-6.0); HEMATOCRIT 46 % (33-45); LYMPHOCYTES # (AUTO) 0.4 /CMM (0.8-4.8); LYMPHOCYTES % (AUTO) 3.6 % (20.0-44.0); MEAN CORPUSCULAR HGB CONC 32 g/dl (31.0-36.0); MEAN CORPUSCULAR VOLUME 90 fL (82-100); MONOCYTES # (AUTO) 0.7 /CMM (0.1-1.30); NEUTROPHILS # (AUTO) 9.9 /CMM (1.8-8.9); PLATELET COUNT (AUTO) 311 /CMM (150-450); RED BLOOD CELL COUNT(AUTO) 5.13 MIL/uL (4.0-5.2); WHITE BLOOD COUNT (AUTO) 10.9 K/uL (4.3-11.0)
[2020-04-29 07:25] LABS: CALCIUM, SERUM 9.9 mg/dL (8.5-10.1); CARBON DIOXIDE 20 mmol/L (21-32); CHLORIDE 104 mmol/L (98-107); CREATININE 0.4 mg/dL (0.6-1.3); GLUCOSE 111 mg/dL (74-106); POTASSIUM 3.9 mmol/L (3.5-5.1); SODIUM SERUM 138 mmol/L (136-145); UREA NITROGEN, BLOOD 10 mg/dL (7-18)
--- NOTE | 2020-04-29 07:55 | NUR ---
MS RN OPENING NOTES PATIENT RESTING IN BED A/O X 2. ON 2L OF O2 WITH BREATHING EVEN AND UNLABORED, NO SOB NOTED. NO SIGNS OF ACUTE DISTRESS. NO COMPLAINTS OR PAIN OR DISCOMFORT- NO FACIAL GRIMACING NOTED. MCCOY CATH NOTED AND IN PLACE DRAINING BETY COLOR URINE. JAMES PICC LINE NOTED AND IV LOCATED ON LAC RUNNING NS @ 100 ML/HR. SAFETY PRECAUTIONS IN PLACE WITH BED IN LOWEST POSITION, CALL LIGHT WITHIN REACH, BREAKS ON, SIDE RAILS UP. ALL NEEDS ATTENDED TO. PATIENT KEPT CLEAN AND DRY.
[2020-04-29] MEDS: ENSURE ENLIVE CHOC 237 ML CAN PO SCH ×3 (08:00→17:25)
[2020-04-29] MEDS: FOLIC ACID 1 MG TABLET PO SCH (09:05)
[2020-04-29] MEDS: AMLODIPINE BESYLATE 5 MG TABLET PO SCH (09:08)
[2020-04-29 09:23] VITALS: BP 151/98
[2020-04-29] MEDS ORDERED: K PHOS NEUTRAL 250 MG TABLET PO ONE (09:30)
[2020-04-29 16:00] VITALS: BP 147/99
[2020-04-29] MEDS: SIMVASTATIN 20 MG TABLET PO SCH (17:24)
[2020-04-29] MEDS ORDERED: IV NS 0.9% 500 ML IV ONE (17:30)
--- NOTE | 2020-04-29 17:30 | NUR ---
MS RN NOTES PATIENT NOTED WEAKER THEN USUAL WITH POOR APATITE. VS WNL. TONIA MADE AWARE ORDERS FOR HEAD CT WO CONTRAST AND 500ML NS BOLUS. ORDERS NOTED AND CARRIED OUT.
--- NOTE | 2020-04-29 19:37 | NUR ---
MS RN NOTES PATIENT IN BED RESTING NOS SOB OR ACUTE DISTRESS NOTED. ALL DUE MEDICATIONS ADMINISTERED. ALL NEEDS MET. ENDORSED CARE TO PM SHIFT.
[2020-04-29 20:00] VITALS: BP 161/101
[2020-04-29] MEDS: CEFTRIAXONE 1 G in IV D5W 50 ML IV SCH (21:37)
[2020-04-30] MEDS: IV NS 0.9% 1,000 ML IV PRN (02:35)
[2020-04-30] MEDS: METOPROLOL TARTRATE 25 MG TABLET PO SCH ×3 (06:31→21:36)
[2020-04-30 08:00] VITALS: BP 155/95
[2020-04-30 08:42] LABS: BASOPHILS % (AUTO) 0.2 % (0.0-2.0); EOSINOPHILS % (AUTO) 0.1 % (0.0-6.0); HEMATOCRIT 45 % (33-45); HEMOGLOBIN 14.7 g/dL (11.5-14.8); LYMPHOCYTES # (AUTO) 0.4 /CMM (0.8-4.8); LYMPHOCYTES % (AUTO) 3.8 % (20.0-44.0); MEAN CORPUSCULAR HGB CONC 33 g/dl (31.0-36.0); MEAN CORPUSCULAR VOLUME 90 fL (82-100); MONOCYTES # (AUTO) 0.6 /CMM (0.1-1.30); MONOCYTES % (AUTO) 6.3 % (2.0-12.0); NEUTROPHILS # (AUTO) 8.9 /CMM (1.8-8.9); NEUTROPHILS % (AUTO) 89.6 % (43.0-81.0); PLATELET COUNT (AUTO) 275 /CMM (150-450); WHITE BLOOD COUNT (AUTO) 9.9 K/uL (4.3-11.0)
[2020-04-30] MEDS: ENSURE ENLIVE CHOC 237 ML CAN PO SCH ×3 (08:44→17:00)
[2020-04-30] MEDS: FOLIC ACID 1 MG TABLET PO SCH (09:03)
[2020-04-30] MEDS: AMLODIPINE BESYLATE 5 MG TABLET PO SCH (09:04)
[2020-04-30 09:11] LABS: CARBON DIOXIDE 25 mmol/L (21-32); CHLORIDE 106 mmol/L (98-107); CREATININE 0.5 mg/dL (0.6-1.3); GLUCOSE 124 mg/dL (74-106); PHOSPHORUS 1.7 mg/dL (2.5-4.9); POTASSIUM 3.2 mmol/L (3.5-5.1); SODIUM SERUM 141 mmol/L (136-145); UREA NITROGEN, BLOOD 10 mg/dL (7-18)
[2020-04-30] MEDS: IV D5/0.45 NACL 1,000 ML IV PRN (15:06)
[2020-04-30 16:00] VITALS: BP 158/94
[2020-04-30] MEDS ORDERED: NEUTRA PHOS 1 POWD.PACKET NG ONE (17:00)
[2020-04-30] MEDS ORDERED: NEUTRA PHOS 1 POWD.PACKET PO ONE (17:00)
[2020-04-30] MEDS ORDERED: K PHOS NEUTRAL 250 MG TABLET PO ONE (18:00)
[2020-04-30] MEDS: SIMVASTATIN 20 MG TABLET PO SCH (18:34)
--- NOTE | 2020-04-30 18:37 | NUR ---
SWITCHED TO TABS INSTEAD OF PKTS.
--- NOTE | 2020-04-30 19:30 | NUR ---
MS/RN OPENING NOTES RECEIVED PATIENT RESTING IN BED, ALERT AND ORIENTED X 2. PATIENT SHOWS NO SIGNS OF DISTRESS AT THE MOMENT. NO SIGNS OF SOB, AND RESPIRATIONS ARE UNLABORED AND EVEN, PATIENT IS ON 2L OXYGEN VIA N/C SATURATING AT 97%. PATIENT HAS LEFT UPPER ARM PICC RUNNING D5 1/2 NS. SAFETY MEASURES ARE IN PLACE, BED IS LOCKED AND IN THE LOW POSITION WITH SIDE RAILS UP X 2 AND PADDED FOR SEIZURE PRECAUTION. CALL LIGHT IS WITHIN REACH. WILL CONTINUE TO MONITOR.
[2020-04-30 20:00] VITALS: BP 141/83
[2020-04-30] MEDS: CEFTRIAXONE 1 G in IV D5W 50 ML IV SCH (21:38)
[2020-05-01] MEDS: METOPROLOL TARTRATE 25 MG TABLET PO SCH ×4 (04:55→21:00)
--- NOTE | 2020-05-01 06:10 | NUR ---
MS/RN CLOSING NOTES PATIENT IN BED SLEEPING, ALERT AND ORIENTED X 2. PATIENT SHOWS NO SIGNS OF DISTRESS AT THE MOMENT. NO SIGNS OF SOB, AND RESPIRATIONS ARE UNLABORED AND EVEN, PATIENT IS ON 2L OXYGEN VIA N/C SATURATING AT 97%. PATIENT HAS LEFT UPPER ARM PICC RUNNING D5 1/2 NS. MCCOY CATH IS IN PLACE AND INTACT DRAINING DARK YELLOW URINE OUTPUT 400ML. SAFETY MEASURES ARE IN PLACE, BED IS LOCKED AND IN THE LOW POSITION WITH SIDE RAILS UP X 3 AND PADDED FOR SEIZURE PRECAUTION. CALL LIGHT IS WITHIN REACH. WILL ENDORSE CARE TO DAY SHIFT.
--- NOTE | 2020-05-01 07:10 | NUR ---
MS RN OPENING NOTES RECEIVED PATIENT AWAKE IN BED AT THIS TIME, AO X2, NO SOB NOTED, NO S/S OF ANY ACUTE DISTRESS NOTED. NO C/O OF PAIN AT THIS TIME, RESPIRATIONS EVEN AND UNLABORED. JAMES PICC LINE INTACT, PATENT AND RUNNING D5 1/2NS @75ML/HR. PT ON 2LPM OXYGEN VIA N/C SATURATING AT 95%. MCCOY CATHETER IN PLACE DRAINING TO GRAVITY CLEAR BETY URINE OUTPUT. ASPIRATION, SEIZURE AND SAFETY PRECAUTIONS IN PLACE, BED IN LOWEST LOCKED POSITION, SIDE RAILS UP X 2 AND PADDED, HOB ELEVATED, CALL LIGHT WITHIN REACH. WILL CONTINUE TO MONITOR.
[2020-05-01 07:11] LABS: BASOPHILS % (AUTO) 0.2 % (0.0-2.0); EOSINOPHILS % (AUTO) 0.4 % (0.0-6.0); HEMATOCRIT 46 % (33-45); HEMOGLOBIN 14.9 g/dL (11.5-14.8); LYMPHOCYTES # (AUTO) 0.5 /CMM (0.8-4.8); LYMPHOCYTES % (AUTO) 4.9 % (20.0-44.0); MEAN CORPUSCULAR HGB CONC 32 g/dl (31.0-36.0); MEAN CORPUSCULAR VOLUME 91 fL (82-100); MONOCYTES # (AUTO) 0.6 /CMM (0.1-1.30); MONOCYTES % (AUTO) 6.1 % (2.0-12.0); NEUTROPHILS # (AUTO) 8.8 /CMM (1.8-8.9); NEUTROPHILS % (AUTO) 88.4 % (43.0-81.0); PLATELET COUNT (AUTO) 243 /CMM (150-450); RED BLOOD CELL COUNT(AUTO) 5.08 MIL/uL (4.0-5.2)
[2020-05-01 07:27] LABS: ALANINE AMINOTRANSFERASE 65 U/L (12-78); ALBUMIN 1.8 g/dL (3.4-5.0); ALKALINE PHOSPHATASE 533 U/L (46-116); ASPARTATE AMINOTRANSFERASE 106 U/L (15-37); BILIRUBIN,TOTAL 0.7 mg/dL (0.2-1.0); CARBON DIOXIDE 25 mmol/L (21-32); CHLORIDE 107 mmol/L (98-107); CREATININE 0.5 mg/dL (0.6-1.3); GLUCOSE 143 mg/dL (74-106); PHOSPHORUS 1.9 mg/dL (2.5-4.9); POTASSIUM 3.3 mmol/L (3.5-5.1); SODIUM SERUM 139 mmol/L (136-145); UREA NITROGEN, BLOOD 12 mg/dL (7-18)
[2020-05-01 08:00] VITALS: BP 151/98
[2020-05-01] MEDS: ENSURE ENLIVE CHOC 237 ML CAN PO SCH ×3 (08:26→17:09)
[2020-05-01] MEDS: AMLODIPINE BESYLATE 5 MG TABLET PO SCH (08:27)
[2020-05-01] MEDS: FOLIC ACID 1 MG TABLET PO SCH (08:27)
[2020-05-01] MEDS ORDERED: POTASSIUM CHLORIDE 20 MEQ TAB.PRT.SR PO SCH (10:00)
--- NOTE | 2020-05-01 10:49 | NUR ---
PT VTE SCORE OF 3, GALI RANGEL MADE AWARE. PER GALI RANGEL, ORDER 30MG LOVENOX SUBCUTANEOUS DAILY. ORDERS READ BACK AND CARRIED OUT. WILL CONTINUE TO MONITOR
[2020-05-01] MEDS: ENOXAPARIN SODIUM 40 MG/0.4 ML DISP.SYRIN SQ SCH (12:33)
[2020-05-01] MEDS: IV D5/0.45 NACL 1,000 ML IV PRN (12:40)
[2020-05-01] MEDS ORDERED: NEUTRA PHOS 1 POWD.PACKET PO ONE (14:00)
[2020-05-01 16:00] VITALS: BP 145/81
[2020-05-01] MEDS: SIMVASTATIN 20 MG TABLET PO SCH (17:09)
--- NOTE | 2020-05-01 18:53 | NUR ---
CYTOLOGY TEACHER CLOSING NOTES PT IN BED AWAKE AT THIS TIME. PT REMAINED STABLE THROUGHOUT SHIFT. MCCOY CATHETER CARE PROVIDED. ALL CARE, NEEDS, TREATMENT AND MEDICATIONS ADMINISTERED ANTICIPATED PER ORDER. PT KEPT CLEAN AND DRY. PT REPOSITIONED Q2HRS, PRN AND PER PROTOCOL. ASPIRATION AND SAFETY PRECAUTIONS IN PLACE. BED IN LOWEST LOCKED POSITION, SIDE RAILS UP, HOB ELEVATED, CALL LIGHT WITHIN REACH. WILL ENDORSE TO NIGHT FOR BEATRICE
--- NOTE | 2020-05-01 19:05 | NUR ---
RN OPENING NOTES RECEIVED PT ON BED AWAKE, SEEMS LETHARGIC AM NURSE TOLD ME THAT PT DIDNT ATE MUCH TODAY, PT IS OPENING EYES WHEN CALLED, ON O2 VIA NC @ 2L SPO2 96%, NO PAIN COMPLAINTS HAVE JAMES PICC WITH ONGOING D5 1/2 NS @ 50ML/HR INFUSING WELL, DROPLET ISOLATION MAINTAINED TO R/O COVID PENDING RESULTS PT ON MCCOY WITH DARK YELLOW BETY URINE FLOWING VIA GRAVITY, SAFETY MEASURE MAINTAINED CALL LIGHT WITHIN REACH WILL CONT TO MONITOR
[2020-05-01 20:00] VITALS: BP 109/70
[2020-05-01] MEDS: CEFTRIAXONE 1 G in IV D5W 50 ML IV SCH (20:16)
[2020-05-01 20:26] VITALS: BP 133/95
--- NOTE | 2020-05-01 21:11 | NUR ---
RN NOTES LOPRESSOR PO MEDICATION NOT GIVEN PT IS SO LETHARGIC AND ITS HARDLY TO SWALLOW VERY HIGH RISK FOR ASPIRATION WILL CONT TO MONITOR PT BP IS 109/70 HR 87
[2020-05-02] MEDS: METOPROLOL TARTRATE 25 MG TABLET PO SCH ×3 (04:48→20:28)
--- NOTE | 2020-05-02 06:44 | NUR ---
RN CLOSING NOTES PT SLEEPING ON BED EASY TO AWAKE, NO SIGN AND SYMPTOMS OF RESPIRATORY DISTRESS, SPO2>95% NO SIGNIFICANT CHANGES ON CONDITION NOTED, ALL NEEDS ATTENDED SAFETY MEASURE MAINTAINED BED ON LOWEST POSITION AND LOCKED SIDERAILS UP X2 CALL LIGHT WITHIN REACH WILL ENDORSE TO AM SHIFT NURSE
--- NOTE | 2020-05-02 07:10 | NUR ---
MS RN OPENING NOTES RECEIVED PT IN BED, SLEEPING AND EASILY AWAKEN AT THIS TIME, AO X2, NO SOB NOTED, NO S/S OF ANY ACUTE DISTRESS NOTED. NO S/S OF PAIN, NO GROANING, NO FACIAL GRIMACE NOTED AT THIS TIME, RESPIRATIONS EVEN AND UNLABORED. JAMES PICC LINE INTACT AND PATENT. PT ON 2LPM OXYGEN VIA N/C. MCCOY CATHETER IN PLACE DRAINING TO GRAVITY CONCENTRATED BETY COLOR URINE OUTPUT WITH NO FOUL SMELL. ASPIRATION, AND SAFETY PRECAUTIONS IN PLACE, BED IN LOWEST LOCKED POSITION, SIDE RAILS UP X 2 AND PADDED, HOB ELEVATED, CALL LIGHT WITHIN REACH. WILL CONTINUE TO MONITOR.
[2020-05-02 08:00] VITALS: BP 127/84
[2020-05-02] MEDS: ENSURE ENLIVE CHOC 237 ML CAN PO SCH ×3 (08:03→16:22)
[2020-05-02] MEDS: FOLIC ACID 1 MG TABLET PO SCH (08:39)
[2020-05-02] MEDS: AMLODIPINE BESYLATE 5 MG TABLET PO SCH (08:40)
[2020-05-02 08:45] LABS: CALCIUM, SERUM 10.4 mg/dL (8.5-10.1); CREATININE 0.6 mg/dL (0.6-1.3); PHOSPHORUS 2.1 mg/dL (2.5-4.9); POTASSIUM 3.8 mmol/L (3.5-5.1)
[2020-05-02] MEDS: K PHOS NEUTRAL 250 MG TABLET PO SCH ×4 (10:05→20:10)
--- NOTE | 2020-05-02 11:00 | NUR ---
MCCOY CATHETER IN PLACE, DRAINING CONCENTRATED BETY URINE OUTPUT WITH NO FOUL SMELL NOTED. URINE OUTPUT NOTED FROM 7AM TO 11AM IS 25ML. MCCOY CATHETER IRRIGATED, BLADDER SCAN SHOWED 192ML. JAYY KAUR AND JARETH, CHARGE NURSE MADE AWARE. WILL CONTINUE TO MONITOR
[2020-05-02] MEDS: ENOXAPARIN SODIUM 40 MG/0.4 ML DISP.SYRIN SQ SCH (13:32)
[2020-05-02] MEDS: IV D5/ 0.9% NACL 1,000 ML IV PRN (13:35)
--- NOTE | 2020-05-02 15:49 | NUR ---
PT IS MOANING, GUARDING HAVING FACIAL GRIMACE. VITAL SIGNS CHECKED. BP152/97, HR 112, TEMP 97.9, SPO2 IS 96%.. PT REPOSITIONED FOR COMFORT, LINENS STRAIGHTENED OUT. NORCO 5-325MG PO Q4HRS PRN ADMINISTERED. WILL CONTINUE TO MONITOR
[2020-05-02 16:00] VITALS: BP 152/97
[2020-05-02] MEDS ORDERED: ENOX40DI SQ (17:09)
[2020-05-02] MEDS ORDERED: AMLO5TAB9 PO (17:09)
[2020-05-02] MEDS ORDERED: ACET325T53 PO (17:09)
[2020-05-02] MEDS ORDERED: Folic Acid PO (17:09)
[2020-05-02] MEDS ORDERED: CEFT1FRO2 IV (17:09)
[2020-05-02] MEDS: SIMVASTATIN 20 MG TABLET PO SCH (17:50)
--- NOTE | 2020-05-02 18:00 | NUR ---
MCCOY CATHETER REMOVED, PER JAYY KAUR REQUEST. JARETH, CHARGE NURSE MADE AWARE. WILL CONTINUE TO MONITOR
--- NOTE | 2020-05-02 19:02 | NUR ---
PT SCHEDULED FOR TRANSFER TO [facility], RYAN FROM [facility] NOTIFIED NURSE AND JARETH, CHARGE NURSE THAT TRANSFER WAS CANCELLED DUE TO DOCTORS DECISION. UNABLE TO REACH ABDULKADIR, CASE MANAGEMENT AT THIS TIME. PETER, CASE MANAGEMENT WAS MADE AWARE. PER PETER, HE WILL FOLLOW UP WITH PATIENTS FAMILY AND UPDATE ABDULKADIR.
--- NOTE | 2020-05-02 19:05 | NUR ---
MS RN CLOSING NOTES PT IN BED AWAKE AT THIS TIME. PT REMAINED STABLE THROUGHOUT SHIFT. MCCOY CATHETER REMOVED. ALL CARE, NEEDS, TREATMENT AND MEDICATIONS ADMINISTERED ANTICIPATED PER ORDER. PT KEPT CLEAN AND DRY. PT REPOSITIONED Q2HRS, PRN AND PER PROTOCOL. ASPIRATION AND SAFETY PRECAUTIONS IN PLACE. BED IN LOWEST LOCKED POSITION, SIDE RAILS UP, HOB ELEVATED, CALL LIGHT WITHIN REACH. WILL ENDORSE TO NIGHT FOR BEATRICE
[2020-05-02 20:00] VITALS: BP 126/86
--- NOTE | 2020-05-02 20:00 | NUR ---
MS/RN OPENING NOTES RECEIVED PATIENT IN BED, SLEEPING BUT AROUSES WITH LIGHT TOUCH, PATIENT PROVIDED WARM BLANKET, SKIN COOL TO TOUCH, ON OXYGEN VIA NC AT 3 LITER, BREATHING EVEN AND UNLABORED, WITH RESPIRATION OF 22. BED LOCKEC, CALL LIGHTS WITHIN REACH, SIDE RAILS UP, ON IV FLUIDS ZT RATE OF 70 ML/HR, WILL MONITOR.
[2020-05-02] MEDS: CEFTRIAXONE 1 G in IV D5W 50 ML IV SCH (20:10)
--- NOTE | 2020-05-02 20:28 | NUR ---
PATIENT OBSERVE LETHARGIC UNABLE TO FOLLOW SIMPLE COMMANDS,CAN NOT SWALLOW PILL AND NOT GIVEN MEDICATIONS AFTER SCANNING IT. SAFETY MEASURES FOLLOWER, ASPIRATIONS PRECAUTION.
--- NOTE | 2020-05-02 20:29 | NUR ---
MS/RN NOTES PATIENT ALERT X1, MORE SLEEPY, CAN OPEN EYES, BREATHING WITH USE OF OXYGEN,
--- NOTE | 2020-05-02 22:00 | NUR ---
MS/RN NOTES MD KUHN MADE AWARE REGARDING PATIENT BEING LETHARGIC OBSERVED SINCE LADT NIGHT, CHARGE NURSE AWARE AND DISCUSSED PATIENT UNABLE TO FOLLOW SIMPLE COMMANDS, ASPIRATION RISK AND NOT GIVEN PO MEDS DUE TO BEING LETHARGIC. TO MONITOR. WILL MONITOR.
--- NOTE | 2020-05-02 23:23 | NUR ---
bladder scan done with urine retention of 260, md order to start with warren catheter if bladder retention above 200 ml.
[2020-05-03] MEDS: METOPROLOL TARTRATE 25 MG TABLET PO SCH ×3 (05:00→21:00)
--- NOTE | 2020-05-03 06:12 | NUR ---
328-2 MS/RN NOTES PATIENT IN BES, WEAK AND LETHARGIC, ON OXYGEN AT 3 LITER SATURATING AT 96%. RESPIRATIONS EVENAND UNLABORED, FRAIL LOOKING, UNABLE TO FOLLOW SIMPLE COMMANDSM ASPIRATION PRECAUTION, RISK, ON IV FLUIDS, MONITOR INPUT AND OUTPUT, BLADDER RETENTION AND NEEDED URINAL BLADDER SCAN, WITH MCCOY DRAING URINE, WILL ENDORSE TO AM RN FOR BEATRICE.
--- NOTE | 2020-05-03 07:30 | NUR ---
MS/RN OPENING NOTES Received patient in bed, A&O x 1, verbally responsive. No s/s of pain/discomfort noted at this time. Breathing even and non-labored on 3L via NC, no SOB. No cardiac distress noted. Sensation from all peripheral extremities intact. PICC line access noted, infusing D5 1/2 NS @70 mls/hr. No infiltration or infection noted on the IV access. Terry catheter still in place, draining ravi urine well. Will still monitor for urinary retention. Sensation from all peripheral extremities intact. Fall precautions maintained. Will continue with current medical management.
[2020-05-03 08:00] VITALS: BP 116/85
[2020-05-03] MEDS: ENSURE ENLIVE CHOC 237 ML CAN PO SCH ×3 (08:55→17:02)
[2020-05-03] MEDS: FOLIC ACID 1 MG TABLET PO SCH (09:12)
[2020-05-03] MEDS: AMLODIPINE BESYLATE 5 MG TABLET PO SCH (09:12)
--- NOTE | 2020-05-03 09:30 | NUR ---
MS/RN NOTES Patient had good appetite during breakfast, ate 50% of meal. Will continue to encourage patient to eat and drink throughout shift. Will continue to monitor for any changes in condition.
--- NOTE | 2020-05-03 09:40 | NUR ---
MS/RN NOTES Patient was able to eat well, finished a small cup of pudding, bottle of ensure, and a small bowl of fruit dessert. Will continue to encourage patient to eat and drink fluids. Will continue to monitor.
--- NOTE | 2020-05-03 10:44 | NUR ---
MS/RN NOTES Bladder scan performed, PVR 226 mL noted. Notified GALI Bustos, states to discharge patient with warren catheter.
[2020-05-03] MEDS: ENOXAPARIN SODIUM 40 MG/0.4 ML DISP.SYRIN SQ SCH (12:34)
--- NOTE | 2020-05-03 13:00 | NUR ---
MS/RN NOTES Patient ate 15% of meal, refuses to drink ensure and eat lunch. Will continue to encourage patient oral intake throughout the shift.
[2020-05-03 16:00] VITALS: BP 142/85
[2020-05-03] MEDS: SIMVASTATIN 20 MG TABLET PO SCH (17:02)
[2020-05-03] MEDS: IV D5/ 0.9% NACL 1,000 ML IV PRN (17:16)
--- NOTE | 2020-05-03 18:30 | NUR ---
MS/RN CLOSING NOTES Patient resting in bed, A&O x 1, remains verbally responsive throughout shift. Breathing even and non-labored on 3L via NC, no SOB. No cardiac distress noted. No s/s of pain/discomfort noted at this time. PICC line access noted, infusing D5 1/2 NS @70 mls/hr. No infiltration or infection noted on the IV access. Sensation from all peripheral extremities intact. Terry catheter still in place, draining ravi urine well. 100 mL of output noted. Will still monitor for urinary retention. Sensation from all peripheral extremities intact. Fall precautions maintained. Will endorse to police shift commander nurse.
[2020-05-03 20:00] VITALS: BP_SYST 138; BP_SYST 150; BP_DIAS 76; BP_DIAS 90
--- NOTE | 2020-05-03 20:00 | NUR ---
MS/RN OPENING NOTES RECEIVED PATIENT IN BED, ASLEEP BUT AROUSES. PATIENT ON OXYGEN VIA NC AT 3LITER, RESPIRATIONS EVEN AND UNLABORED, SKIN COOL TO TOUCH, WARM BLANKET PROVIDED, TO MONITOR ANY CHANGES,RECEIVED ENDORSEMENT FROM AM RN FOR BEATRICE,.BED LOCKED, CALL LIGHTS WIWTHIN REACH. WILL MONITOR.
--- NOTE | 2020-05-03 20:05 | NUR ---
MS/RN NOTES PATIENT MCCOY CATHETER DRAINING MINIMAL DARK YELLOW URINE, IV FLUID DRAINING. NOTICEABLE BLE EDEMA, TO MONITOR FOR ANY CHANGES.
[2020-05-03] MEDS: CEFTRIAXONE 1 G in IV D5W 50 ML IV SCH (21:13)
--- NOTE | 2020-05-03 21:14 | NUR ---
MS/RN NOTES PATIENT ABLE TO OPEN EYES,BUT NOT ALERT, UNABLE TO FOLLOW SIMPLE COMMANDS, ASPIRATION PRECAUTION, PATIENT WEAK AND LETHARGIC DURING THE NIGHT, TO MONITOR.UNABLE TO GIVE PO MEDS AT THIS TIME, PULSE RATE AT 117, RE CHECKED. B/P 138/76,
[2020-05-04] MEDS: METOPROLOL TARTRATE 25 MG TABLET PO SCH ×4 (05:00→20:54)
--- NOTE | 2020-05-04 05:40 | NUR ---
MS/RN NOTES PATIENT CAN OPEN EYES AND UNABLE TO TOLERATE SIP OF WATER PATIENT COUGHS AFTER SIP OF WATER, HOB ELEVATED, PATIENT ABLE TO HOLD THE CUP BUT UNABLE TO SWALLOW SAFELY BY ORDERED TEXTURE OF FLUID PRESCRIBED. HELD PO MEDS, ASPIRATION PRECAUTION RISK.
--- NOTE | 2020-05-04 05:49 | NUR ---
MS/RN NOTES PATIENT ABLE TO SLEEP DURING THE NIGHT. KEPT COMFORTABLE.
--- NOTE | 2020-05-04 06:32 | NUR ---
328-2 MS/RN NOTES PATIENT IN BED, ASLEEP. ABLE TO AROUSE , ON OXYGEN VIA NC AT 3 LITER, ATTENDED TO ALL NEEDS, IV ANTIBIOTIC ADMINISTERED , IV FLUID INFUSING, MCCOY DRAINING MINIMAL DARK YELLOW COLOR URINE, MONITORED, BED LOCKEC, CALL LIGHTS WITHIN REACH, WILL ENDORSE TO AM RN FOR BEATRICE.
[2020-05-04 07:03] LABS: ALANINE AMINOTRANSFERASE 79 U/L (12-78); ALBUMIN 1.5 g/dL (3.4-5.0); ALKALINE PHOSPHATASE 547 U/L (46-116); ASPARTATE AMINOTRANSFERASE 123 U/L (15-37); CALCIUM, SERUM 9.2 mg/dL (8.5-10.1); CARBON DIOXIDE 25 mmol/L (21-32); CHLORIDE 107 mmol/L (98-107); CREATININE 1.5 mg/dL (0.6-1.3); GLUCOSE 122 mg/dL (74-106); SODIUM SERUM 142 mmol/L (136-145); TOTAL PROTEIN, SERUM 5.7 g/dL (6.4-8.2); UREA NITROGEN, BLOOD 28 mg/dL (7-18)
[2020-05-04 07:19] LABS: BASOPHILS % (AUTO) 0.1 % (0.0-2.0); EOSINOPHILS % (AUTO) 0.3 % (0.0-6.0); HEMATOCRIT 45 % (33-45); HEMOGLOBIN 14.1 g/dL (11.5-14.8); LYMPHOCYTES # (AUTO) 0.5 /CMM (0.8-4.8); LYMPHOCYTES % (AUTO) 4.1 % (20.0-44.0); MEAN CORPUSCULAR HGB CONC 31 g/dl (31.0-36.0); MEAN CORPUSCULAR VOLUME 93 fL (82-100); MONOCYTES # (AUTO) 0.8 /CMM (0.1-1.30); MONOCYTES % (AUTO) 7.2 % (2.0-12.0); NEUTROPHILS # (AUTO) 9.9 /CMM (1.8-8.9); NEUTROPHILS % (AUTO) 88.3 % (43.0-81.0); PLATELET COUNT (AUTO) 198 /CMM (150-450); RED BLOOD CELL COUNT(AUTO) 4.85 MIL/uL (4.0-5.2); WHITE BLOOD COUNT (AUTO) 11.2 K/uL (4.3-11.0)
[2020-05-04 08:00] VITALS: BP 132/76
[2020-05-04] MEDS: ENSURE ENLIVE CHOC 237 ML CAN PO SCH ×4 (08:00→17:11)
[2020-05-04] MEDS: FOLIC ACID 1 MG TABLET PO SCH (09:47)
[2020-05-04] MEDS: AMLODIPINE BESYLATE 5 MG TABLET PO SCH (09:47)
[2020-05-04] MEDS: ENOXAPARIN SODIUM 40 MG/0.4 ML DISP.SYRIN SQ SCH (12:58)
--- NOTE | 2020-05-04 13:22 | NUR ---
MS/RN NOTE PER DR RG AND JAYY RANGEL TO DISCONTINUE NPO ORDER AFTER US ABDOMEN. AND START THE PATIENT ON PUREED DIET. US ABDOMEN DONE. ORDERS NOTED AND CARRIED OUT.
[2020-05-04 16:00] VITALS: BP 121/65
--- NOTE | 2020-05-04 16:00 | NUR ---
MS/RN NOTE AIR LIFT OPERATOR CLAIRE IS MADE AWARE OF US ABDOMEN RESULT. NO NEW ORDER PER AIR LIFT OPERATOR.
[2020-05-04] MEDS: SIMVASTATIN 20 MG TABLET PO SCH (17:11)
--- NOTE | 2020-05-04 18:15 | NUR ---
MS/RN CLOSING NOTES Patient resting in bed, A&O x 1, remains verbally responsive throughout shift. Breathing even and non-labored on 3L via NC, no SOB. . No s/s of pain/discomfort noted at this time.JAMES PICC line access intact ,patent noted, infusing D5 1/2 NS @70 mls/hr. No infiltration or infection noted on the IV access.Pt noted with poor intake, Sensation from all peripheral extremities intact. Terry catheter Reinserted today in place, draining small amount of ravi urine . Will still monitor for urinary retention. Fall precautions maintained bed in low position side rails up X2 call light within reach. Will endorse to weight shifter nurse.
--- NOTE | 2020-05-04 19:30 | NUR ---
MS/RN OPENING NOTES RECEIVED PATIENT RESTING IN BED ALERT AND ORIENTED X 1. PATIENT SHOWS NO SIGNS OF DISTRESS. BREATHING IS EVEN AND UNLABORED. NO SIGNS OF SOB OR RESPIRATORY DISTRESS. PATIENT IS ON 3L OF OXYGEN TOLERATING WELL. MCCOY CATH IS IN PLACE DRAINING DARK YELLOW URINE. PATIENT HAS JAMES PICC LINE #18 G RUNNING D5 1/2 NS AT 70 ML/HR. SAFETY MEASURES ARE IN PLACE, BED IS LOCKED AND PLACED IN THE LOW POSITION, SIDE RAILS UP X 2, SEIZURES PRECAUTION IN PLACE. CALL LIGHT IS WITHIN REACH. WILL CONTINUE TO MONITOR PATIENT THROUGH OUT SHIFT.
[2020-05-04 20:00] VITALS: BP 132/74
[2020-05-04] MEDS: CEFTRIAXONE 1 G in IV D5W 50 ML IV SCH (20:53)
[2020-05-04 21:51] LABS: CREATININE, URINE 168.7 MG/DL (30.0-125.0)
[2020-05-04 21:58] LABS: APPEARANCE,URINE TURBID (CLEAR); BILIRUBIN,URINE MODERATE (NEGATIVE); BLOOD, URINE LARGE Ery/uL (NEGATIVE); COLOR,URINE DARK YELLO (YELLOW); KETONES,URINE NEGATIVE (NEGATIVE); LEUKOCYTE ESTERASE ,URINE NEGATIVE (NEGATIVE); NITRITE, URINE POSITIVE (NEGATIVE); PH,URINE 5.5 (5.0-8.0); PROTEIN,URINE >=300 mg/dl (NEGATIVE); UGLUCOSE 100 MG/DL mg/dL (NEGATIVE)
[2020-05-04 22:01] LABS: BACTERIA,URINE 2+ /HPF (None Seen); SQUAMOUS EPITHELIAL CELL,UR 0-2 /HPF (None Seen)
[2020-05-04 22:02] LABS: URINE AMORPHOUS URATE Many /HPF (None Seen)
[2020-05-04 22:07] LABS: URINE TOTAL PROTEIN 634.9 mg/dL (0-11.9)
[2020-05-04 22:53] LABS: EOSINOPHIL,URINE None Seen
[2020-05-05] MEDS: IV D5/ 0.9% NACL 1,000 ML IV PRN ×2 (00:17→16:16)
[2020-05-05] MEDS: METOPROLOL TARTRATE 25 MG TABLET PO SCH ×3 (05:04→20:45)
[2020-05-05 06:00] LABS: BASOPHILS % (AUTO) 0.2 % (0.0-2.0); EOSINOPHILS % (AUTO) 0.5 % (0.0-6.0); HEMATOCRIT 41 % (33-45); HEMOGLOBIN 13.3 g/dL (11.5-14.8); LYMPHOCYTES # (AUTO) 0.4 /CMM (0.8-4.8); LYMPHOCYTES % (AUTO) 3.7 % (20.0-44.0); MEAN CORPUSCULAR HGB CONC 32 g/dl (31.0-36.0); MEAN CORPUSCULAR VOLUME 90 fL (82-100); MONOCYTES # (AUTO) 0.8 /CMM (0.1-1.30); MONOCYTES % (AUTO) 7.3 % (2.0-12.0); NEUTROPHILS # (AUTO) 9.4 /CMM (1.8-8.9); NEUTROPHILS % (AUTO) 88.3 % (43.0-81.0); PLATELET COUNT (AUTO) 212 /CMM (150-450); RED BLOOD CELL COUNT(AUTO) 4.57 MIL/uL (4.0-5.2); WHITE BLOOD COUNT (AUTO) 10.7 K/uL (4.3-11.0)
--- NOTE | 2020-05-05 06:05 | NUR ---
MS/RN CLOSING NOTES PATIENT RESTING IN BED ALERT AND ORIENTED X 1. PATIENT SHOWS NO SIGNS OF DISTRESS. BREATHING IS EVEN AND UNLABORED. NO SIGNS OF SOB OR RESPIRATORY DISTRESS. PATIENT IS ON 3L OF OXYGEN TOLERATING WELL. MCCOY CATH IS IN PLACE DRAINING BETY COLOR URINE OUTPUT 50 ML. MCCOY CATH HAS BEEN FLUSHED DURING SHIFT, NO RESISTANCE DURING FLUSH. PATIENT WAS ABLE TO SWALLOW CRUSH MEDS IN SMALL AMOUNT OF APPLE SAUCE. WHEN PROVIDED WITH SMALL AMOUNT OF THICKEN FLUIDS OR APPLE SAUCE PATIENT DID NOT WANT TO SWALLOW DURING SHIFT. PATIENT HAS JAMES PICC LINE #18 G RUNNING D5 1/2 NS AT 70 ML/HR. SAFETY MEASURES ARE IN PLACE, BED IS LOCKED AND PLACED IN THE LOW POSITION, SIDE RAILS UP X 2, SEIZURES PRECAUTION IN PLACE. CALL LIGHT IS WITHIN REACH. WILL ENDORSE CARE TO DAY SHIFT.
[2020-05-05 06:29] LABS: ALANINE AMINOTRANSFERASE 66 U/L (12-78); ALKALINE PHOSPHATASE 562 U/L (46-116); ASPARTATE AMINOTRANSFERASE 95 U/L (15-37); BILIRUBIN,TOTAL 1.1 mg/dL (0.2-1.0); CALCIUM, SERUM 8.9 mg/dL (8.5-10.1); CARBON DIOXIDE 24 mmol/L (21-32); CHLORIDE 108 mmol/L (98-107); CREATININE 2.3 mg/dL (0.6-1.3); GLUCOSE 137 mg/dL (74-106); MAGNESIUM 1.8 mg/dL (1.8-2.4); PHOSPHORUS 4.1 mg/dL (2.5-4.9); POTASSIUM 3.6 mmol/L (3.5-5.1); SODIUM SERUM 141 mmol/L (136-145); TOTAL PROTEIN, SERUM 5.4 g/dL (6.4-8.2); UREA NITROGEN, BLOOD 35 mg/dL (7-18)
[2020-05-05 06:51] LABS: ALBUMIN 1.4 g/dL (3.4-5.0)
[2020-05-05 08:00] VITALS: BP 143/90
--- NOTE | 2020-05-05 08:00 | NUR ---
RN OPENING NOTE Patient is resting in bed, A/O x1, presents with SOB, breath sounds are diminished with slight crackles, saturating 97% on 3L NC. Patient presents with generalized pitting edema 1+.Patient is unable to swallow fluids, food and medication at this time. N.P. made aware. JAMES Picc line is noted running D5NS @70mls/hour. Terry catheter noted with clear yellow output about 5mls only. Bed is in lowest position, side rails x3 in upright position, call light is within reach, fall safety and aspiration precautions enforced. Will continue with plan of care.
[2020-05-05] MEDS: FOLIC ACID 1 MG TABLET PO SCH (08:13)
[2020-05-05] MEDS: AMLODIPINE BESYLATE 5 MG TABLET PO SCH (08:13)
[2020-05-05] MEDS: ENSURE ENLIVE CHOC 237 ML CAN PO SCH ×3 (08:14→17:00)
[2020-05-05] MEDS: FUROSEMIDE 100 MG/10 ML VIAL IV SCH ×2 (10:39→14:52)
[2020-05-05 12:00] VITALS: BP 138/60
[2020-05-05] MEDS: ENOXAPARIN SODIUM 40 MG/0.4 ML DISP.SYRIN SQ SCH (13:19)
--- NOTE | 2020-05-05 13:27 | NUR ---
RN NOTE Per Ke Hooper, ok for patient to not take PO metoprolol since she is unable to swallow. Held medication.
--- NOTE | 2020-05-05 15:20 | NUR ---
RN NOTE Patient has no urine output throughout shift. Bladder scan done and only 100mls found in bladder. Patient still presents with generalized pitting edema +1 and SOB. Ke Hooper is aware. Dr. Willson made aware.
[2020-05-05 16:00] VITALS: BP 126/78
[2020-05-05] MEDS: SIMVASTATIN 20 MG TABLET PO SCH (17:15)
--- NOTE | 2020-05-05 18:29 | NUR ---
RN CLOSING NOTE Patient is resting in bed, A/O x1, presents with SOB, breath sounds are diminished with slight crackles, saturating 97% on 3L NC. Patient presents with generalized pitting edema 1+.Patient is unable to swallow fluids, food and medication during this shift N.P. made aware, no new orders. JAMES Picc line is noted running D5NS @70mls/hour. Terry catheter noted with clear yellow output about 20mls out this shift. Bladder scan showed only 100mls--notified Dr. Willson and he is aware, no new orders from him. All patient needs met, all due medications given, patient kept clean and dry throughout the shift. Bed is in lowest position, side rails x3 in upright position, call light is within reach, fall safety and aspiration precautions enforced. Will endorse to night auditor for BEATRICE.
--- NOTE | 2020-05-05 19:30 | NUR ---
MS/RN OPENING NOTES RECEIVED PATIENT SLEEPING IN BED ALERT AND ORIENTED X 1. PATIENT SHOWS NO SIGNS OF DISTRESS. BREATHING IS EVEN AND UNLABORED. NO SIGNS OF SOB OR RESPIRATORY DISTRESS. PATIENT IS ON 3L OF OXYGEN TOLERATING WELL 96% O2 STAT. MCCOY CATH IS IN PLACE. PATIENT HAS JAMES PICC LINE #18 G RUNNING D5 1/2 NS AT 70 ML/HR. SAFETY MEASURES ARE IN PLACE, BED IS LOCKED AND PLACED IN THE LOW POSITION, SIDE RAILS UP X 2, SEIZURES PRECAUTION IN PLACE. CALL LIGHT IS WITHIN REACH, BED ALARM IS ON. WILL CONTINUE TO MONITOR PATIENT.
[2020-05-05 20:00] VITALS: BP 125/80
[2020-05-05] MEDS: CEFTRIAXONE 1 G in IV D5W 50 ML IV SCH (20:44)
[2020-05-06] MEDS: METOPROLOL TARTRATE 25 MG TABLET PO SCH ×3 (05:15→21:04)
--- NOTE | 2020-05-06 06:26 | NUR ---
MS/RN CLOSING NOTES PATIENT RESTING IN BED ALERT AND ORIENTED X 1. PATIENT SHOWS NO SIGNS OF DISTRESS. BREATHING IS EVEN AND UNLABORED. NO SIGNS OF SOB OR RESPIRATORY DISTRESS. PATIENT IS ON 3L OF OXYGEN TOLERATING WELL 97% O2 STAT. MCCOY CATH IS IN PLACE. PATIENT HAS JAMES PICC LINE #18 G RUNNING D5 1/2 NS AT 70 ML/HR. PATIENT WAS OFFERED THICK FLUIDS AND ICE CHIPS THROUGH OUT SHIFT, PATIENT HAD A POOR ORAL INTAKE. ALL PATIENTS NEEDS HAVE BEEN MET DURING SHIFT. PATIENTS FAMILY WILL COME TO SEE PATIENT TODAY. SAFETY MEASURES ARE IN PLACE, BED IS LOCKED AND PLACED IN THE LOW POSITION, SIDE RAILS UP X 2, SEIZURES PRECAUTION IN PLACE. CALL LIGHT IS WITHIN REACH, BED ALARM IS ON. WILL ENDORSE CARE TO HOSE HANDLER.
[2020-05-06 08:00] VITALS: BP 128/86
[2020-05-06] MEDS: ENSURE ENLIVE CHOC 237 ML CAN PO SCH ×3 (08:00→17:54)
[2020-05-06] MEDS: AMLODIPINE BESYLATE 5 MG TABLET PO SCH (09:33)
[2020-05-06] MEDS: FOLIC ACID 1 MG TABLET PO SCH (09:33)
[2020-05-06] MEDS ORDERED: Z GUARD REMEDY 2 OZ OINT TP PRN (11:30)
[2020-05-06] MEDS: ENOXAPARIN SODIUM 40 MG/0.4 ML DISP.SYRIN SQ SCH (14:02)
[2020-05-06 16:00] VITALS: BP 134/74
[2020-05-06] MEDS: IV D5/ 0.9% NACL 1,000 ML IV PRN (16:58)
[2020-05-06] MEDS: SIMVASTATIN 20 MG TABLET PO SCH (18:00)
--- NOTE | 2020-05-06 18:45 | NUR ---
RN NOTE Ke Hooper gave T.O. order for Morphine IV 2mg Q2HR PRN for SOB. Orders repeated back, will carry out.
--- NOTE | 2020-05-06 18:57 | NUR ---
RN OPENING NOTE Patient is resting in bed, A/O x1, presents with SOB, breath sounds are diminished with slight crackles, saturating 97% on 3L NC. Patient presents with generalized pitting edema 2+. Patient is able to swallow small spoonfuls of thickened ensure at this time. JAMES Picc line is noted running D5NS @70mls/hour. Terry catheter noted with clear yellow output about 5mls only. Bed is in lowest position, side rails x3 in upright position, call light is within reach, fall safety and aspiration precautions enforced. Will continue with plan of care.
--- NOTE | 2020-05-06 18:58 | NUR ---
RN CLOSING NOTE Patient is resting in bed, A/O x1, presents with SOB, breath sounds are diminished with slight crackles, saturating 97% on 3L NC. Patient presents with generalized pitting edema 2+. JAMES Picc line is noted running D5NS @70mls/hour. Terry catheter noted with clear yellow output about 20mls out this shift. Family is at the bedside to visit patient and discuss hospice care. Ke Hooper spoke with family. All patient needs met, all due medications given, patient kept clean and dry throughout the shift. Will endorse to distribution center manager for BEATRICE.
[2020-05-06] MEDS ORDERED: MORPHINE SULFATE INJ 2 MG/ML DISP.SYRIN IV PRN (19:00)
[2020-05-06] MEDS ORDERED: LORAZEPAM INJ 2 MG/ML VIAL IV PRN (19:30)
[2020-05-06] MEDS ORDERED: SCOPOLAMINE HBR 1 EA PATCH.TD72 TD SCH (19:30)
--- NOTE | 2020-05-06 19:30 | NUR ---
MS/RN NOTES RECEIVED PATIENT AWAKE IN BED RESTING, ALERT AND ORIENTED X 1. PATIENT HAS SIGNS OF SOB AND LABORED BREATHING. PATIENT ON 3 L OF OXYGEN NC STATING AT 97%. PATIENT IN MID DISCOMFORT. PICC LINE ON PATIENT LEFT UPPER ARM INTACT AND PATENT RUNNING D5NS AT 30 ML/HR. MCCOY CATH IS IN PLACE DRAINING DARK BETY URINE. FAMILY IS AT PATIENT BED SIDE. COMFORT MEASURES ARE IN PLACE. SAFETY MEASURES CARRIED OUT, BED IS LOCK AND IN LOW POSITION, WITH SIDE RAILS UP X 3, SEIZURE PRECAUTIONS. CALL LIGHT IS WITH IN REACH. WILL CONTINUE TO MONITOR PATIENT THROUGH SHIFT.
--- NOTE | 2020-05-06 19:30 | NUR ---
RN NOTE Received T.O. orders from Ke N.P. for comfort measures. - Morphine drip starting at 2mg and titrate to 5mg/hr. - Ativan Inj 0.5mg Q2HR PRN agitation - Scopolamine patch q3d - D5NS @ 30cc/hr Orders repeated back and carried out with [facility] overnight cashier BLAS. Discussed with compounding pharmacy technician.
[2020-05-06 20:00] VITALS: BP 135/65
[2020-05-06] MEDS ORDERED: MORPHINE SULFATE INJ 2 MG/ML DISP.SYRIN IV ONE (20:00)
--- NOTE | 2020-05-06 20:00 | NUR ---
MS/RN NOTES PATIENTS MORPHINE 2 MG IVP D/C IN ERROR. MORPHINE [address] TO BE GIVEN X 1.
--- NOTE | 2020-05-06 20:30 | NUR ---
MS/RN NOTES PATIENT HAVING LABORED BREATHING. MORPHINE 2MG IVP GIVEN FOR COMFORT MEASURES. FAMILY AT PATIENT BED SIDE. WILL CONTINUE TO MONITOR.
[2020-05-06] MEDS: CEFTRIAXONE 1 G in IV D5W 50 ML IV SCH (21:04)
[2020-05-06] MEDS ORDERED: KEY,NONCONTROL,TO KEEP IN PYXI 1 EA MC ONE (21:50)
[2020-05-06] MEDS: MORPHINE SULFATE PF DRIP 250 MG in IV D5W 240 ML IV PRN (22:04)
--- NOTE | 2020-05-06 22:05 | NUR ---
MS/RN NOTES MORPHINE DRIP 2 MG/HR HAS BEEN STARTED FOR PATIENT. PATIENT IS RECEIVING FOR COMFORT MEASURES. VITALS SIGNS ARE WITHIN NORMAL LIMITS. NO DISTRESS NOTED. WILL CONTINUE TO MONITOR.
[2020-05-07] MEDS: METOPROLOL TARTRATE 25 MG TABLET PO SCH (05:00)
--- NOTE | 2020-05-07 05:00 | NUR ---
MS/RN NOTES UPON CLEANING PATIENT, BLOOD WAS NOTICE FROM PATIENTS RECTAL AND GROIN AREA. PATIENT WAS CLEANED AND CHANGED, WITH BEDDING CHANGES WELL. VITALS SIGNS WITHIN NORMAL LIMITS. O2 STAT AT 96% ON 3L. WILL CONTINUE TO MONITOR.
--- NOTE | 2020-05-07 06:30 | NUR ---
MS/RN CLOSING NOTES PATIENT RESTING IN BED, ALERT AND ORIENTED X 1. PATIENT NOTED WITH SWALLOW BREATHING, IN NO RESPIRATORY DISTRESS. PATIENT ON 3 L OF OXYGEN NC STATING AT 96%. PICC LINE ON PATIENT LEFT UPPER ARM INTACT AND PATENT RUNNING D5NS AT 30 ML/HR. PATIENT HAS MORPHINE DRIP 2 MG/HR. MCCOY CATH IS IN PLACE DRAINING DARK BETY URINE OUTPUT 50ML. COMFORT MEASURES ARE IN PLACE. ORAL CARE HAS BEEN DONE THROUGH OUT SHIFT. PATIENT NOT TOLERATING PO INTAKE WELL. ALL NEEDS HAVE BEEN MET DURING SHIFT. SAFETY MEASURES ARE IN PLACE, BED IS LOCK AND IN LOW POSITION, WITH SIDE RAILS UP X 3, SEIZURE PRECAUTIONS. CALL LIGHT IS WITH IN REACH. WILL ENDORSE CARE TO DAY NIGHT.
--- NOTE | 2020-05-07 07:30 | NUR ---
RN Opening note Received patient in bed, able to responds physical stimuli, does no appears pain or any discomfort. pt is comfort measure, morphine drip at 2ml/hr at this time. Skin is warm to touch, kept clean/dry, intact picc line running D5ns at 30ml. Respiratory even and unlabored with oxygen at 3LPM. Keep bed in locked with elevated HOB for ensure airway, aspiration precaution and low position of the bed for safety. Call light within reach, will continue to monitor.
[2020-05-07 08:00] VITALS: BP 84/42
[2020-05-07] MEDS: ENSURE ENLIVE CHOC 237 ML CAN PO SCH (08:00)
[2020-05-07] MEDS: AMLODIPINE BESYLATE 5 MG TABLET PO SCH (08:07)
[2020-05-07] MEDS: FOLIC ACID 1 MG TABLET PO SCH (08:22)
--- NOTE | 2020-05-07 08:23 | NUR ---
Patient is comfort measure and unable to swallow meds, will hold morning meds.
--- NOTE | 2020-05-07 12:45 | NUR ---
Patient is comfort measure only, received new order d/c all medications except Ativan and morphine by Dr. Pedraza. Noted and carried out.
[2020-05-07 16:00] VITALS: BP 82/49
--- NOTE | 2020-05-07 18:36 | NUR ---
RN Closing note Patient in bed remain comfort measure, morphine drip running at 2ml/hr. Skin is warm to touch, keep clean/dry, 100 ml out put from warren cath, given oral care. Respiratory even and unlabored with oxygen at 3LPM, O2sat 95%n, no distress observed. Keep bed in locked with elevated HOB for ensure air way and aspiration precaution. Call light within reach, all need met, will endorse iuss acoustic analyst.
--- NOTE | 2020-05-07 19:30 | NUR ---
RN OPENING NOTES: RECEIVED PT ON 3LPM VIA NC AND IS TOLERATING WELL. PT HAS JAMES PICC LINE AND IS ON A MORPHINE DRIP 2MG/HR. PT ALSO HAS MCCOY CATH AND IS ATTACHED TO DRAINAGE BAG WITH BETY URINE. PT ON COMFORT MEASURES. PT APPEARS TO BE LETHARGIC. PT EYES SHUT WITH SHALLOWED BREATHING NOTED. BED KEPT IN LOW, LOCKED POSITION, AND SIDE RAILS X 2UP. BED ALARM ACTIVATED. PT APPEARS TO BE COMFORTABLE. WILL CONTINUE TO MONITOR PT.
[2020-05-07 20:00] VITALS: BP 81/43
[2020-05-07] MEDS: MORPHINE SULFATE PF DRIP 250 MG in IV D5W 240 ML IV PRN (21:58)
--- NOTE | 2020-05-07 21:58 | NUR ---
RN NOTES: MORPHINE SDV 50MG/1ML 20ML (TOTAL 250ML) BAG WAS CHANGED WITH ANOTHER RN, LINDSEY LEE. 210 ML WAS WASTED FROM PREVIOUS BAG OF MORPHINE CYO55CG/1ML 20ML WITH ANOTHER RN, LINDSEY LEE. MORPHINE DRIP RATE STILL AT 2ML/H (2MG/H).
--- NOTE | 2020-05-08 06:01 | NUR ---
RN CLOSING NOTES: ALL NEEDS WERE ATTENDED AND ANTICIPATED FOR. PT REMAINS ON 3LPM VIA NC AND IS TOLERATING WELL. PT HAS EYES CLOSED AND WAS LETHARGIC THE ENTIRE SHIFT. PT HAS MCCOY CATH AND IS ATTACHED TO DRAINAGE BAG WITH VERY MINIMAL OUTPUT. TOTAL OUTPUT WAS 25ML. NO BM BUT DID NOTE MINIMAL RECTAL BLEEDING WHEN CLEANED. PT VERY EDEMATOUS IN BILATERAL ARMS AND LEGS. PT REMAINS NPO. ORAL CARE PERFORMED AND SUCTIONED OUT. PT HAS JAMES DOUBLE LUMEN PICC LINE AND IS STILL ON MORPHINE DRIP AT 2MG/HR (2ML/HR). PT REMAINS ON COMFORT MEASURES. PT TURNED AND REPOSITIONED Q2HRS. BED KEPT IN LOW, LOCKED POSITION, AND SIDE RAILS X 2UP. WILL ENDORSE TO AM NURSE FOR BEATRICE.
--- NOTE | 2020-05-08 07:02 | NUR ---
RN NOTES: ENDORSED TO AM NURSECARTER.
--- NOTE | 2020-05-08 07:53 | NUR ---
MS/RN OPENING NOTES Patient resting in bed, eyes closed and lethargic. Remains on comfort measures. No s/s of pain/discomfort at this time. No respiratory distress noted, on 3L oxygen via NC. No cardiac distress noted. JAMES PICC line access noted, on morphine drip at 2mg/hr (2ml/hr). Terry catheter in place, draining yellow urine with minimal output noted. Patient is on NPO. Fall precautions maintained. Will continue to monitor patient for any changes in condition.
[2020-05-08 08:00] VITALS: BP 105/46
--- NOTE | 2020-05-08 15:00 | NUR ---
MS/RN NOTES Son came to visit to take patient's shirt, sweatpants, and earrings to home. Documented on the property list and placed in the chart.
--- NOTE | 2020-05-08 19:00 | NUR ---
MS/RN CLOSING NOTES Patient in bed, remains lethargic and eyes were closed during the shift. Remains NPO. No s/s of pain/discomfort noted. No respiratory distress noted, on 3L oxygen via NC. No cardiac distress noted. JAMES PICC line access noted, on morphine drip at 2mg/hr (2ml/hr). Terry catheter in place, draining yellow urine with 5 cc output noted. Fall precautions maintained. Continue rendering comfort measures. Will endorse to slot shift supervisor nurse.
--- NOTE | 2020-05-08 19:45 | NUR ---
MS RN NOTES RECEIVED ON BED LETHARGIC,ON COMFORT MEASURES ONLY,MORPHINE DRIP IN PROGRESS AT 2MG/HR RATE.O2 AT2L/NC IN USED.MCCOY CATH IN PLACE DRAINING SCANTY OUTPUT.REPOSITION PER PROTOCOL.WILL CONTINUE TO MONITOR STATUS.
[2020-05-08 20:00] VITALS: BP 72/37
--- NOTE | 2020-05-08 20:30 | NUR ---
MS RN NOTES BP ON THE LOW SIDE AT 72/37,WITH AGONAL BREATHING NOTED,PALE LOOKING.
--- NOTE | 2020-05-08 22:15 | NUR ---
MS RN NOTES CHECKING PATIENT AND NOTED NOT BREATHING,CHARGE NURSE CHRISTINA MADE AWARE,PRONOUNCED AT THIS TIME.
--- NOTE | 2020-05-08 22:15 | NUR ---
MS RN NOTES MADE CALL TO SON TINA,NO ANSWER,LEAVE MESSAGE ON ANSWERING MACHINE.[facility] NOTIFIED OF WITH CASE #[id number],ADMITTING MADE AWARE,SPOKE TO JENN BY CHARGE NURSE ANURAG VASQUEZ HOSPITALIST [facility] [employer] MADE AWARE AND HE SAID TO NOTIFY ATTENDING DOCTOR,NOTED. DR MUÑOZ MADE AWARE.
--- NOTE | 2020-05-08 22:17 | NUR ---
MS RN NOTES NURSING TRAVELING REPRESENTATIVE KAREN BROWNLEE MADE AWARE OF .
[2020-05-08] MEDS ORDERED: KEY,NONCONTROL,TO KEEP IN PYXI 1 EA MC ONE (23:00)
--- NOTE | 2020-05-08 23:00 | NUR ---
MS RN NOTES POST MORTEM CARE RENDERED
--- NOTE | 2020-05-08 23:20 | NUR ---
MS RN NOTES YUN PRUITT CALLED,MADE AWARE OF PATIENT , WILL COME TO SEE THE REMAINS.
--- NOTE | 2020-05-09 00:20 | NUR ---
MS RN NOTES SON YUN PRUITT CAME AND SEE THE REMAINS.WILL ARRANGE MORTUARY IN THE MORNING AND HE CALL NURSING POWER WASHER WHEN ITS DONE.
== END 2020-05-08 22:15 | disposition expired | DRG 682 ==
LOC: ER 21:22 → TELE 22:54 → MED 04-23 07:50
PROVIDERS: ATTEND Nurse Practitioner Acute Care
PROC: 0W993ZZ Drainage of Right Pleural Cavity, Percutaneous Approach (ICD-10-PCS; 2020-04-25)
PROC: 02HV33Z Insertion of Infusion Device into Superior Vena Cava, Percutaneous Approach (ICD-10-PCS; principal; 2020-04-27)
DX: N17.0 Acute kidney failure with tubular necrosis (principal); G93.41 Metabolic encephalopathy; C18.2 Malignant neoplasm of ascending colon; E87.1 Hypo-osmolality and hyponatremia; C78.6 Secondary malignant neoplasm of retroperitoneum and peritoneum; R18.0 Malignant ascites; E86.0 Dehydration; Z85.038 Personal history of other malignant neoplasm of large intestine; Z90.49 Acquired absence of other specified parts of digestive tract; I10 Essential (primary) hypertension; J45.909 Unspecified asthma, uncomplicated; Z86.73 Personal history of transient ischemic attack (TIA), and cerebral infarction without residual deficits; E87.6 Hypokalemia; E78.5 Hyperlipidemia, unspecified
CPT/HCPCS: 36415; 36600; 70450-TC; 71045-TC; 71270-TC; 74178; 76700-TC; 80048-TC; 80053-TC; 80061-TC; 80076-TC; 81000-TC; 82140-TC; 82378; 82570-TC; 82728-TC; 82803-TC; 82962-TC; 83540-TC; 83735-TC; 83880; 83935-TC; 84100-TC; 84155-TC; 84300-TC; 84443-TC; 84484-TC; 84550-TC; 85025-TC; 85610-TC; 85652-TC; 85730-TC; 87070-TC; 87081-TC; 87086-TC; 87186-TC; 88108-TC; 88305-TC; 92526; 92611-TC; 93307-TC; 97110-TC; 97112-TC; 97116-TC; 97530-TC; C1751; G0378; G0480; J0696; J1650; J1940; J2270; J2274; J3490; J7030; J7040; J7042; J7050; J7060; Q9967; U0003-CS